=== PATIENT | male | born 1965 | race Caucasian/White ===

== ENCOUNTER 2018-02-23 02:55 | Emergency (ER) | payer MEDICARE ==
[2018-02-23 03:20] VITALS: TEMP 98.9
--- NOTE | 2018-02-23 04:06 | ED ---
General Adult HPI - General Source: patient, RN notes reviewed Mode of arrival: EMS Limitations: no limitations <Louie Pittman - Last Filed: 02/23/18 04:41> <Vivi Crow - Last Filed: 02/23/18 12:47> - General Chief complaint: Psychiatric Symptoms Stated complaint: SUICIDAL Time Seen by Provider: 02/23/18 02:57 - History of Present Illness Initial comments: 52-year-old male presents to the emergency department for a chief complaint of depression. Patient states that 2 weeks ago he had an upsetting event occur that he does not wish to discuss at this time. Patient states he became increasingly depressed after this event. Patient states at that point he had been sober from alcohol for 2.5 years and recently started drinking again in the past 2 weeks. Patient admits to drinking a gallon of wine throughout the day today. Patient states that he was on the phone with his friend when he began to talk about his depression. Patient states his friend became worried and called EMS. Patient denies having stated any suicidal thoughts. He denies any thoughts of self-harm at this time. Patient does have a history of bipolar disorder as well as severe depression. He has medications which he has not been taking consistently. Patient also has a history of suicide attempt in the past with overdose. Patient has no other complaints at this time including shortness of breath, chest pain, abdominal pain, nausea or vomiting, headache, or visual changes. (Louie Pittman) - Related Data Home Medications Medication Instructions Recorded Confirmed Citalopram Hydrobromide [CeleXA] 40 mg PO DAILY 02/25/15 02/23/18 lamoTRIgine [LaMICtal] 200 mg PO BID 02/25/15 02/23/18 Levothyroxine Sodium [Synthroid] 300 mcg PO DAILY 02/26/15 02/23/18 Carvedilol [Coreg] 6.25 mg PO BID 04/24/15 02/23/18 Cyanocobalamin [Vitamin B-12] 500 mg PO DAILY 04/24/15 02/23/18 Furosemide [Lasix] 40 mg PO DAILY 04/24/15 02/23/18 Iron 650 mg PO DAILY 04/24/15 02/23/18 LORazepam [Ativan] 1 mg PO TID PRN 04/24/15 02/23/18 Multivitamins, Thera [Multivitamin 1 tab PO DAILY 09/30/15 02/23/18 (formulary)] Previous Rx's Medication Instructions Recorded Folic Acid 1 mg PO DAILY #30 tablet 02/28/15 Pantoprazole [Protonix] 40 mg PO BID #60 tablet. 10/09/15 Thiamine [Vitamin B-1] 100 mg PO 1200 #30 tablet 10/09/15 Tobramycin 0.3% Ophth Soln [Tobrex 1 drops BOTH EYES BID #1 bottle 10/09/15 0.3% Ophth Soln] Vancomycin Oral Solution 250 mg PO Q6HR #200 ml 10/09/15 Allergies Allergy/AdvReac Type Severity Reaction Status Date / Time latex Allergy Rash/Hives Verified 09/30/15 00:48 Review of Systems ROS Other: All systems not noted in ROS Statement are negative. <Louie Pittman - Last Filed: 02/23/18 04:41> ROS Other: All systems not noted in ROS Statement are negative. <Vivi Crow - Last Filed: 02/23/18 12:47> ROS Statement: Those systems with pertinent positive or pertinent negative responses have been documented in the HPI. Past Medical History Past Medical History: Atrial Fibrillation, Coronary Artery Disease (CAD), Chest Pain / Angina, Heart Failure, CVA/TIA, GERD/Reflux, GI Bleed, Hypertension, Myocardial Infarction ([place]), Seizure Disorder, Sleep Apnea/CPAP/BIPAP, Syncope, Thyroid Disorder, Vascular Disorder Additional Past Medical History / Comment(s): Pt. states he had a CT in 2013 and had a TIA in 1994. Does not currently have seizures. States he has varicose veins and poor venous circulation. Last Myocardial Infarction Date:: 2013 History of Any Multi-Drug Resistant Organisms: None Reported Past Surgical History: Bariatric Surgery, Bowel Resection, Heart Catheterization , Hernia Repair, Tonsillectomy Additional Past Surgical History / Comment(s): varicose vein surgery, Hernia repair as an infant. 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 Past Anesthesia/Blood Transfusion Reactions: No Reported Reaction Past Psychological History: Depression Smoking Status: Former smoker Past Alcohol Use History: Abuse, Daily, Heavy Past Drug Use History: None Reported - Past Family History Father Family Medical History: Cancer Additional Family Medical History / Comment(s): Lymphoma Sister(s) Family Medical History: Cancer Additional Family Medical History / Comment(s): Breast <Louie Pittman - Last Filed: 02/23/18 04:41> General Exam Limitations: no limitations General appearance: alert, in no apparent distress Head exam: Present: atraumatic, normocephalic, normal inspection Eye exam: Present: normal appearance. Absent: scleral icterus, conjunctival injection ENT exam: Present: normal exam, mucous membranes moist Neck exam: Present: normal inspection, full ROM. Absent: tenderness, meningismus, lymphadenopathy Respiratory exam: Present: normal lung sounds bilaterally. Absent: respiratory distress, wheezes, rales, rhonchi, stridor Cardiovascular Exam: Present: regular rate, normal rhythm, normal heart sounds. Absent: systolic murmur, diastolic murmur, rubs, gallop, clicks Neurological exam: Present: alert, oriented X3, CN II-XII intact Psychiatric exam: Present: depressed (Patient does appear intoxicated and is tearful. He is nonaggressive and cooperative.) <Louie Pittman - Last Filed: 02/23/18 04:41> Vital Signs 02/23/18 03:00 Temperature 98.9 F Pulse Rate 83 Respiratory 18 Rate Blood Pressure 155/97 O2 Sat by Pulse 94 L Oximetry Medical Decision Making <Louie Pittman - Last Filed: 02/23/18 04:41> <Vivi Crow - Last Filed: 02/23/18 12:47> - Medical Decision Making 52-year-old male with a history of bipolar disorder as well as depression presents to the emergency department for a chief complaint of depressive thoughts. Patient states he was speaking with a friend earlier today when he started to talk about his depression and she became concerned and called the police. Patient denies any thoughts of suicide or threatening suicide at any time today. Patient denies thoughts of self-harm or harming others. Patient does admit to a past suicide attempt with overdose but denies any thoughts of overdosing now. Patient was sober from alcohol for 2.5 years and recently began drinking about 2 weeks ago. Patient admits to drinking a gallon of wine today. BAT 0.287. (Louie Pittman) Patient was evaluated by EPS, and Patient will be discharged home at this time. Homicidal ideations. Patient at this time will have close follow-up with a psychiatrist outpatient. He'll be going home with a friend. He is sober and discharge. (Vivi Crow) - Lab Data Lab Results 02/23/18 Range/Units 07:25 Urine Opiates Screen Not Detected (NotDetected) Ur Oxycodone Screen Not Detected (NotDetected) Urine Methadone Screen Not Detected (NotDetected) Ur Propoxyphene Screen Not Detected (NotDetected) Ur Barbiturates Screen Not Detected (NotDetected) U Tricyclic Antidepress Not Detected (NotDetected) Ur Phencyclidine Scrn Not Detected (NotDetected) Ur Amphetamines Screen Not Detected (NotDetected) U Methamphetamines Scrn Not Detected (NotDetected) U Benzodiazepines Scrn Not Detected (NotDetected) Urine Cocaine Screen Not Detected (NotDetected) U Marijuana (THC) Screen Not Detected (NotDetected) Disposition <Louie Pittman - Last Filed: 02/23/18 04:41> Is patient prescribed a controlled substance at d/c from ED?: No Time of Disposition: 12:47 <Vivi Crow - Last Filed: 02/23/18 12:47> Clinical Impression: ETOH abuse Disposition: HOME SELF-CARE Condition: Good Instructions: Abuse of Alcohol (ED) Additional Instructions: Patient advised to follow-up with primary care physician. Return to emergency department if any alarming signs or symptoms occur. Referrals: Rikki Mo MD [Primary Care Provider] - 1-2 days
[2018-02-23] MEDS ORDERED: LORazepam 2 MG/ML INJ IV PRN ×3 (04:14)
[2018-02-23 07:59] LABS: Amphetamine Screen,Urine Not Detected (NotDetected); Barbiturate Screen,Urine Not Detected (NotDetected); Benzodiazepines Screen,Urine Not Detected (NotDetected); Cocaine Screen,Urine Not Detected (NotDetected); Methadone Screen, Urine Not Detected (NotDetected); Opiate Screen,Urine Not Detected (NotDetected); Oxycodone Screen, Urine Not Detected (NotDetected); Phencyclidine Screen,Urine Not Detected (NotDetected); Tricyclic Antidepressant,Urine Not Detected (NotDetected); Urn Cannabinoid Scrn Not Detected (NotDetected)
[2018-02-23] MEDS ORDERED: chlordiazePOXIDE 25 MG CAP PO STA (12:49)
[2018-02-23 14:02] VITALS: BP 136/78; PULSE 98; RESP 16
== END 2018-02-23 14:00 | disposition home or self-care (01) ==
LOC: EC 02:55
DX: F10.10 Alcohol abuse, uncomplicated (principal); R45.850 Homicidal ideations; F31.9 Bipolar disorder, unspecified; I48.91 Unspecified atrial fibrillation; I25.119 Atherosclerotic heart disease of native coronary artery with unspecified angina pectoris; I11.0 Hypertensive heart disease with heart failure; I50.9 Heart failure, unspecified; I25.2 Old myocardial infarction; G40.909 Epilepsy, unspecified, not intractable, without status epilepticus; G47.30 Sleep apnea, unspecified; Z99.89 Dependence on other enabling machines and devices; E07.9 Disorder of thyroid, unspecified; Z87.891 Personal history of nicotine dependence; Z86.73 Personal history of transient ischemic attack (TIA), and cerebral infarction without residual deficits; Z79.899 Other long term (current) drug therapy; Z91.040 Latex allergy status; Z95.818 Presence of other cardiac implants and grafts
CPT/HCPCS: 82075; 80306; 99284; 96374; J2060

== ENCOUNTER 2018-03-26 10:12 | Inpatient (IN) | payer MEDICARE ==
[2018-03-26] MEDS ORDERED: SODIUM CHLORIDE 0.9% 1,000 ML IV STA ×2 (10:44→12:12)
--- NOTE | 2018-03-26 10:44 | ED ---
General Adult HPI - General Chief complaint: Psychiatric Symptoms Stated complaint: Alcohol/Mental Health Time Seen by Provider: 03/26/18 10:21 Source: patient, EMS, RN notes reviewed Mode of arrival: EMS Limitations: no limitations - History of Present Illness Initial comments: Patient is a 52-year-old male presenting to the emergency department by EMS. Patient admits to being depressed and having suicidal thoughts. Patient does have thoughts of walking into oncoming traffic. Patient does admit to drinking alcohol. Patient denies any overdose or excessive total taking. No drug use. Patient does have a history of previous suicide attempt in the past. Patient states he did experience a recent loss. EMS states they have concern patient recently lost his dog. Patient denies any physical complaints. - Related Data Home Medications Medication Instructions Recorded Confirmed Citalopram Hydrobromide [CeleXA] 40 mg PO DAILY 02/25/15 03/26/18 lamoTRIgine [LaMICtal] 400 mg PO DAILY 02/25/15 03/26/18 Levothyroxine Sodium [Synthroid] 300 mcg PO DAILY 02/26/15 03/26/18 Disulfiram [Antabuse] 250 mg PO DAILY 03/26/18 03/26/18 Ferrous Sulfate [Feosol] 325 mg PO DAILY 03/26/18 03/26/18 Furosemide [Lasix] 20 mg PO DAILY 03/26/18 03/26/18 Metoprolol Succinate (ER) [Toprol 50 mg PO DAILY 03/26/18 03/26/18 Xl] QUEtiapine [SEROquel] 100 mg PO HS 03/26/18 03/26/18 Ramipril [Altace] 5 mg PO HS 03/26/18 03/26/18 Allergies Allergy/AdvReac Type Severity Reaction Status Date / Time latex Allergy Rash/Hives Verified 03/26/18 10:55 Review of Systems ROS Statement: Those systems with pertinent positive or pertinent negative responses have been documented in the HPI. ROS Other: All systems not noted in ROS Statement are negative. Constitutional: Denies: fever Eyes: Denies: eye pain ENT: Denies: ear pain Respiratory: Denies: cough Cardiovascular: Denies: chest pain Endocrine: Denies: fatigue Gastrointestinal: Denies: abdominal pain Genitourinary: Denies: dysuria Musculoskeletal: Denies: back pain Skin: Denies: rash Neurological: Denies: headache Psychiatric: Reports: depression, suicidal thoughts Past Medical History Past Medical History: Atrial Fibrillation, Coronary Artery Disease (CAD), Chest Pain / Angina, Heart Failure, CVA/TIA, GERD/Reflux, GI Bleed, Hypertension, Myocardial Infarction ([place]), Seizure Disorder, Sleep Apnea/CPAP/BIPAP, Syncope, Thyroid Disorder, Vascular Disorder Additional Past Medical History / Comment(s): Pt. states he had a [place] in 2013 and had a TIA in 1994. Does not currently have seizures. States he has varicose veins and poor venous circulation. Last Myocardial Infarction Date:: 2013 History of Any Multi-Drug Resistant Organisms: None Reported Past Surgical History: Bariatric Surgery, Bowel Resection, Heart Catheterization , Hernia Repair, Tonsillectomy Additional Past Surgical History / Comment(s): varicose vein surgery, Hernia repair as an infant. 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 Past Anesthesia/Blood Transfusion Reactions: No Reported Reaction Past Psychological History: Depression Smoking Status: Former smoker Past Alcohol Use History: Abuse, Daily, Heavy Past Drug Use History: None Reported - Past Family History Father Family Medical History: Cancer Additional Family Medical History / Comment(s): Lymphoma Sister(s) Family Medical History: Cancer Additional Family Medical History / Comment(s): Breast General Exam Limitations: altered mental status General appearance: alert, in no apparent distress Head exam: Present: atraumatic Eye exam: Present: normal appearance, PERRL, EOMI, nystagmus ENT exam: Present: normal oropharynx Neck exam: Present: normal inspection Respiratory exam: Present: normal lung sounds bilaterally Cardiovascular Exam: Present: tachycardia, irregular rhythm GI/Abdominal exam: Present: soft. Absent: tenderness Extremities exam: Present: normal inspection Neurological exam: Present: alert Psychiatric exam: Present: depressed, suicidal ideation Skin exam: Present: normal color Course Vital Signs 03/26/18 03/26/18 03/26/18 10:19 12:07 12:49 Temperature 98.2 F Pulse Rate 124 H 141 H 116 H Respiratory 18 18 18 Rate Blood Pressure 155/85 153/104 148/76 O2 Sat by Pulse 96 95 97 Oximetry 03/26/18 14:08 Temperature Pulse Rate 135 H Respiratory 18 Rate Blood Pressure 135/86 O2 Sat by Pulse Oximetry - Reevaluation(s) Reevaluation #1: 03/26/18 10:54 Patient is being uncooperative and near combative with staff. EKG Findings - EKG Comments: EKG Findings:: Neuro complex irregular rhythm with a rate of 129. QRS 134. QT 32. QTC 413. Left axis. Nonspecific intraventricular block. No acute ST change. Medical Decision Making - Medical Decision Making Patient was reevaluated. Patient has continued A. fib with RVR despite Ativan and IV fluid boluses. Case was discussed with Dr. rasmussen, who will admit for hospital call. - Lab Data Result diagrams: 03/26/18 10:55 03/26/18 10:55 Lab Results 03/26/18 03/26/18 Range/Units 10:55 10:55 WBC 4.5 (3.8-10.6) k/uL RBC 4.94 (4.30-5.90) m/uL Hgb 12.5 L (13.0-17.5) gm/dL Hct 41.5 (39.0-53.0) % MCV 84.0 (80.0-100.0) fL MCH 25.4 (25.0-35.0) pg MCHC 30.2 L (31.0-37.0) g/dL RDW 19.9 H (11.5-15.5) % Plt Count 196 (150-450) k/uL Neutrophils % 45 % Lymphocytes % 37 % Monocytes % 12 % Eosinophils % 2 % Basophils % 1 % Neutrophils # 2.0 (1.3-7.7) k/uL Lymphocytes # 1.7 (1.0-4.8) k/uL Monocytes # 0.5 (0-1.0) k/uL Eosinophils # 0.1 (0-0.7) k/uL Basophils # 0.0 (0-0.2) k/uL Hypochromasia Moderate Anisocytosis Slight Sodium 147 H (137-145) mmol/L Potassium 4.7 (3.5-5.1) mmol/L Chloride 113 H (98-107) mmol/L Carbon Dioxide 21 L (22-30) mmol/L Anion Gap 13 mmol/L BUN 17 (9-20) mg/dL Creatinine 0.94 (0.66-1.25) mg/dL Est GFR (CKD-EPI)AfAm >90 (>60 ml/min/1.73 sqM) Est GFR (CKD-EPI)NonAf >90 (>60 ml/min/1.73 sqM) Glucose 101 H (74-99) mg/dL Calcium 8.7 (8.4-10.2) mg/dL Total Bilirubin 0.2 (0.2-1.3) mg/dL AST 48 (17-59) U/L ALT 47 (21-72) U/L Alkaline Phosphatase 84 (38-126) U/L Total Protein 6.3 (6.3-8.2) g/dL Albumin 3.8 (3.5-5.0) g/dL Salicylates <1.0 mg/dL Acetaminophen <10.0 ug/mL Serum Alcohol 293 H* mg/dL Critical Care Time Critical Care Time: Yes Total Critical Care Time: 32 Disposition Clinical Impression: Acute alcohol intoxication, Atrial fibrillation with RVR, Depression, Suicidal ideation Disposition: ADMITTED IP TO THIS HOSP Is patient prescribed a controlled substance at d/c from ED?: No Referrals: Rikki Mo MD [Primary Care Provider] - 1-2 days Decision Time: 14:16
[2018-03-26] MEDS ORDERED: SODIUM CHLORIDE 0.9% 1,000 ML with MVI, ADULT NO.4 WITH VIT K 10 ML, THIAMINE 100 MG, F... IV ONE ×4 (10:45)
[2018-03-26] MEDS: HALOPERIDOL LACTATE 5 MG/ML 1 ML VIAL IVP PRN ×2 (11:02→11:14)
[2018-03-26 11:10] LABS: Anisocytosis Slight; Basophils % (A) 1 %; Eosinophils # (A) 0.1 k/uL (0-0.7); Eosinophils % (A) 2 %; HCT 41.5 % (39.0-53.0); HGB 12.5 gm/dL (13.0-17.5); Hypochromasia Moderate; Lymphocytes # (A) 1.7 k/uL (1.0-4.8); Lymphocytes % (A) 37 %; MCH 25.4 pg (25.0-35.0); MCHC 30.2 g/dL (31.0-37.0); Mean Platelet Volume 6.7; Monocytes # (A) 0.5 k/uL (0-1.0); Monocytes % (A) 12 %; Neutrophils % (A) 45 %; Platelet Count 196 k/uL (150-450); RBC 4.94 m/uL (4.30-5.90); RDW 19.9 % (11.5-15.5); WBC 4.5 k/uL (3.8-10.6)
[2018-03-26 11:21] LABS: ALT 47 U/L (21-72); AST 48 U/L (17-59); Acetaminophen <10.0 ug/mL; Albumin 3.8 g/dL (3.5-5.0); Alkaline Phosphatase 84 U/L (38-126); Anion Gap 13 mmol/L; Blood Urea Nitrogen 17 mg/dL (9-20); Calcium 8.7 mg/dL (8.4-10.2); Carbon Dioxide 21 mmol/L (22-30); Chloride 113 mmol/L (98-107); Glucose 101 mg/dL (74-99); Potassium 4.7 mmol/L (3.5-5.1); Salicylate <1.0 mg/dL; Sodium 147 mmol/L (137-145); Total Bilirubin 0.2 mg/dL (0.2-1.3); Total Protein 6.3 g/dL (6.3-8.2)
[2018-03-26 11:25] LABS: Alcohol 293 mg/dL
[2018-03-26] MEDS ORDERED: LORazepam 2 MG/ML INJ IV STA (12:35)
[2018-03-26] MEDS ORDERED: NITROGLYCERIN SL TABS 0.4 MG TAB SUBLINGUAL PRN (14:17)
[2018-03-26] MEDS ORDERED: ASPIRIN 81 MG PO STA (14:17)
[2018-03-26 14:48] LABS: Creatine Kinase MB 1.9 ng/mL (0.0-2.4); Troponin I 0.024 ng/mL (0.000-0.034)
--- NOTE | 2018-03-26 15:04 | XR ---
EXAMINATION TYPE: XR chest 2V DATE OF EXAM: 03/26/2018 COMPARISON: 09/30/2015 HISTORY: Chest pain TECHNIQUE: Frontal and lateral views of the chest are obtained. FINDINGS: Heart and mediastinum are normal. Lungs are clear. Diaphragm is normal. Bony thorax is int act. There are chest leads. IMPRESSION: Normal chest. No change.
[2018-03-26] MEDS: DILTIAZEM 50 MG in SODIUM CHLORIDE 0.9% 40 ML IV SCH ×3 (15:06→21:18)
[2018-03-26] MEDS: SODIUM CHLORIDE 0.9% 1,000 ML IV SCH ×2 (15:10→17:27)
[2018-03-26 15:38] LABS: Amphetamine Screen,Urine Not Detected (NotDetected); Barbiturate Screen,Urine Not Detected (NotDetected); Benzodiazepines Screen,Urine Detected (NotDetected); Cocaine Screen,Urine Not Detected (NotDetected); Methadone Screen, Urine Not Detected (NotDetected); Opiate Screen,Urine Not Detected (NotDetected); Oxycodone Screen, Urine Not Detected (NotDetected); Phencyclidine Screen,Urine Not Detected (NotDetected); Tricyclic Antidepressant,Urine Not Detected (NotDetected); Urn Cannabinoid Scrn Not Detected (NotDetected)
[2018-03-26] MEDS ORDERED: DILTIAZEM DRIP BOLUS FROM BAG 1 MG SOLN IV ONE ×3 (15:51→17:02)
[2018-03-26] MEDS ORDERED: SODIUM CHLORIDE 0.9% 500 ML IV ONE (16:38)
[2018-03-26] MEDS ORDERED: traMADol 50 MG TAB PO PRN (16:50)
[2018-03-26] MEDS ORDERED: ACETAMINOPHEN TAB 325 MG TAB PO PRN (16:50)
--- NOTE | 2018-03-26 16:51 | P.HPIM ---
History of Present Illness This is a pleasant 50 years old male with past medical history of coronary artery disease, atrial fibrillation, heart failure, GI bleed, hypertension, seizure disorder, sleep apnea, syncope, hypothyroidism. Patient was brought by EMS, however patient does not know why he states that his neighbor called police for him and he hasn't been told why. However patient states he has been drinking every day about a gallon of wine. And he confirms to me that he has history of suicidal ideation and has the hospital for that reason about 10 years ago. And that he has a psychiatrist appointment to follow up with on May [address] Winston Holguin He earlier he told the emergency room attending that he has suicidal ideation and plans, however when I walked into the room he denies to me suicidal ideation. Patient was on 07-11 and told the sitter at bedside that he wanted to kill himself, although at times he would not admit that. Psychiatric consultation. Continue with IV fluids. On admission also patient was noticed to have a high heart rates about 130-140, and it was irregular. However patient denies any chest pain or dyspnea or dizziness. Systolic blood pressure in the 120s. Patient states he has history of seizure related to alcohol withdrawal. Patient was started on Cardizem drip in the emergency room and his heart rates are coming down to 120, follow-up as per protocol Review of Systems CONSTITUTIONAL: No fever, no malaise, no fatigue. HEENT: No recent visual problems or hearing problems. Denied any sore throat. CARDIOVASCULAR: No orthopnea, PND, no palpitations, no syncope. PULMONARY: No shortness of breath, no cough, no hemoptysis. GASTROINTESTINAL: No diarrhea, no nausea, no vomiting, no abdominal pain. Normoactive bowel sounds. NEUROLOGICAL: No headaches, no weakness, no numbness. HEMATOLOGICAL: Denies any bleeding or petechiae. GENITOURINARY: Denies any burning micturition, frequency, or urgency. MUSCULOSKELETAL/RHEUMATOLOGICAL: Denies any joint pain, swelling, or any muscle pain. ENDOCRINE: Denies any polyuria or polydipsia. Past Medical History Past Medical History: Atrial Fibrillation, Coronary Artery Disease (CAD), Chest Pain / Angina, Heart Failure, CVA/TIA, GERD/Reflux, GI Bleed, Hypertension, Myocardial Infarction ([place]), Seizure Disorder, Sleep Apnea/CPAP/BIPAP, Syncope, Thyroid Disorder, Vascular Disorder Additional Past Medical History / Comment(s): Pt. states he had a [place] in 2013 and had a TIA in 1994. Does not currently have seizures. States he has varicose veins and poor venous circulation. Last Myocardial Infarction Date:: 2013 History of Any Multi-Drug Resistant Organisms: None Reported Past Surgical History: Bariatric Surgery, Bowel Resection, Heart Catheterization , Hernia Repair, Tonsillectomy Additional Past Surgical History / Comment(s): varicose vein surgery, Hernia repair as an . 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 Past Anesthesia/Blood Transfusion Reactions: No Reported Reaction Past Psychological History: Depression Smoking Status: Former smoker Past Alcohol Use History: Abuse, Daily, Heavy Past Drug Use History: None Reported - Past Family History Father Family Medical History: Cancer Additional Family Medical History / Comment(s): Lymphoma Sister(s) Family Medical History: Cancer Additional Family Medical History / Comment(s): Breast Medications and Allergies Home Medications Medication Instructions Recorded Confirmed Type Citalopram Hydrobromide [CeleXA] 40 mg PO DAILY 02/25/15 03/26/18 History lamoTRIgine [LaMICtal] 400 mg PO DAILY 02/25/15 03/26/18 History Levothyroxine Sodium [Synthroid] 300 mcg PO DAILY 02/26/15 03/26/18 History Disulfiram [Antabuse] 250 mg PO DAILY 03/26/18 03/26/18 History Ferrous Sulfate [Feosol] 325 mg PO DAILY 03/26/18 03/26/18 History Furosemide [Lasix] 20 mg PO DAILY 03/26/18 03/26/18 History Metoprolol Succinate (ER) [Toprol 50 mg PO DAILY 03/26/18 03/26/18 History Xl] QUEtiapine [SEROquel] 100 mg PO HS 03/26/18 03/26/18 History Ramipril [Altace] 5 mg PO HS 03/26/18 03/26/18 History Allergies Allergy/AdvReac Type Severity Reaction Status Date / Time latex Allergy Rash/Hives Verified 03/26/18 10:55 Physical Exam Vitals: Vital Signs Temp Pulse Pulse Resp BP Pulse Ox 03/26/18 15:54 138 H 16 144/88 98 03/26/18 15:32 134 H 18 131/97 98 03/26/18 15:10 149 H 18 140/102 97 03/26/18 14:08 135 H 18 135/86 03/26/18 12:49 116 H 18 148/76 97 03/26/18 12:07 141 H 18 153/104 95 03/26/18 10:55 135 H 03/26/18 10:19 98.2 F 124 H 18 155/85 96 Intake and Output 03/26/18 03/26/18 03/26/18 06:59 14:59 22:59 Other: Weight 122.47 kg -GENERAL: The patient is alert and oriented x3, slightly drowsy not in any acute distress. Well developed, well nourished. Obese HEENT: Pupils are round and equally reacting to light. EOMI. No scleral icterus. No conjunctival pallor. Normocephalic, atraumatic. No pharyngeal erythema. No thyromegaly. -CARDIOVASCULAR: S1 and S2 present. No murmurs, rubs, or gallops. fast heart rate PULMONARY: Chest is clear to auscultation, no wheezing or crackles. ABDOMEN: Soft, nontender, nondistended, normoactive bowel sounds. No palpable organomegaly. MUSCULOSKELETAL: No joint swelling or deformity. EXTREMITIES: No cyanosis, clubbing, or pedal edema. NEUROLOGICAL: Gross neurological examination did not reveal any focal deficits. SKIN: No rashes. Results CBC & Chem 7: 03/26/18 10:55 03/26/18 10:55 Labs: Abnormal Lab Results - Last 24 Hours (Table) 03/26/18 03/26/18 03/26/18 Range/Units 10:55 10:55 15:10 Hgb 12.5 L (13.0-17.5) gm/dL MCHC 30.2 L (31.0-37.0) g/dL RDW 19.9 H (11.5-15.5) % Sodium 147 H (137-145) mmol/L Chloride 113 H (98-107) mmol/L Carbon Dioxide 21 L (22-30) mmol/L Glucose 101 H (74-99) mg/dL U Benzodiazepines Scrn Detected H (NotDetected) Serum Alcohol 293 H* mg/dL Assessment and Plan Assessment: Atrial fibrillation with RVR Suicidal ideation and plan Alcohol abuse History of alcohol withdrawal seizure Plan: This is a pleasant 52 years old male from [place] who presents because of A. fib and RVR with suicidal ideation related to alcoholism. Admit to the general medical floor with continuing the same treatment. Continue symptomatic treatment. Resume home medication. Continue with seizure precaution, suicidal precautions. Sitter at bedside with one-to-one. nurse communication is placed for patient cannot sign leaving AMA. Continue with negative inotropic medication. Patient was started on Cardizem drip on admission. s..Cardiology consultation. Continue with CIWA protocol. Banana bag with thiamine, multivitamin and folic acid. GI and DVT prophylaxis. Telemetry. Further recommendation is based on the clinical course the patient DVT prophylaxis on subcutaneous heparin GI prophylaxis Pepcid Prognosis is guarded Discussed with bed side nurse
[2018-03-26] MEDS: THIAMINE 100 MG TAB PO SCH (17:33)
[2018-03-26] MEDS: LORazepam 2 MG/ML INJ IV PRN ×3 (17:48→22:48)
[2018-03-26 17:51] LABS: Creatine Kinase MB 1.8 ng/mL (0.0-2.4); Troponin I 0.028 ng/mL (0.000-0.034)
[2018-03-26] MEDS: QUEtiapine 100 MG TAB PO SCH (20:04)
[2018-03-26] MEDS: FAMOTIDINE 20 MG/2 ML VIAL IV SCH (20:05)
[2018-03-26] MEDS: HEPARIN SODIUM,PORCINE 5,000 UNIT/ML 1 ML VIAL SQ SCH (20:05)
[2018-03-26] MEDS ORDERED: LISINOPRIL 20 MG TAB PO SCH (21:00)
[2018-03-26 23:23] LABS: Creatine Kinase MB 1.4 ng/mL (0.0-2.4); Troponin I 0.022 ng/mL (0.000-0.034)
[2018-03-27] MEDS: LORazepam 2 MG/ML INJ IV PRN ×3 (00:48→02:29)
[2018-03-27] MEDS: SODIUM CHLORIDE 0.9% 1,000 ML IV SCH ×5 (00:48→16:06)
[2018-03-27] MEDS: HALOPERIDOL LACTATE 5 MG/ML 1 ML VIAL IVP PRN (01:28)
[2018-03-27] MEDS: GABAPENTIN 100 MG CAP PO SCH ×4 (03:29→21:05)
[2018-03-27 04:09] LABS: Glucose,Whole Blood 132 mg/dL (75-99)
[2018-03-27] MEDS ORDERED: LORazepam Vial 40 MG in DEXTROSE 5% IN WATER 80 ML IV SCH ×2 (04:30)
[2018-03-27] MEDS ORDERED: NALOXONE 0.4 MG/ML 1 ML VIAL IV PRN (04:37)
[2018-03-27 04:57] LABS: Appearance,Urine Clear (Clear); Bilirubin,Urine Negative (Negative); Blood,Urine Negative (Negative); Color,Urine Light Yellow; Glucose,Urine (UA) Negative (Negative); Ketones,Urine Negative (Negative); Leukocyte Esterase,Urine Negative (Negative); Nitrite,Urine Negative (Negative); PH, Urine 6.5 (5.0-8.0); Protein,Urine Negative (Negative); Specific Gravity,Urine 1.011 (1.001-1.035); Urobilinogen,Urine <2.0 mg/dL (<2.0)
[2018-03-27] MEDS: ACETAMINOPHEN TAB 325 MG TAB PO PRN (05:02)
[2018-03-27] MEDS: DILTIAZEM 50 MG in SODIUM CHLORIDE 0.9% 40 ML IV SCH ×4 (05:06→16:03)
[2018-03-27 05:30] LABS: Anisocytosis Slight; Basophils % (A) 1 %; Eosinophils % (A) 1 %; HCT 38.6 % (39.0-53.0); HGB 11.8 gm/dL (13.0-17.5); Hypochromasia Slight; Lymphocytes # (A) 0.4 k/uL (1.0-4.8); Lymphocytes % (A) 14 %; MCHC 30.5 g/dL (31.0-37.0); Mean Platelet Volume 6.7; Microcytosis Slight; Monocytes # (A) 0.3 k/uL (0-1.0); Monocytes % (A) 10 %; Neutrophils # (A) 2.3 k/uL (1.3-7.7); Neutrophils % (A) 73 %; Platelet Count 134 k/uL (150-450); RDW 19.7 % (11.5-15.5); WBC 3.2 k/uL (3.8-10.6)
[2018-03-27 05:44] LABS: ALT 37 U/L (21-72); AST 37 U/L (17-59); Albumin 3.4 g/dL (3.5-5.0); Alkaline Phosphatase 91 U/L (38-126); Anion Gap 8 mmol/L; Blood Urea Nitrogen 12 mg/dL (9-20); Calcium 8.4 mg/dL (8.4-10.2); Carbon Dioxide 23 mmol/L (22-30); Chloride 106 mmol/L (98-107); Cholesterol 166 mg/dL (<200); Glucose 106 mg/dL (74-99); HDL Cholesterol 54 mg/dL (40-60); LDL Cholesterol,Calculated 86 mg/dL (0-99); Magnesium 1.4 mg/dL (1.6-2.3); Phosphorus 2.2 mg/dL (2.5-4.5); Potassium 3.8 mmol/L (3.5-5.1); Sodium 137 mmol/L (137-145); Total Bilirubin 1.1 mg/dL (0.2-1.3); Total Protein 5.8 g/dL (6.3-8.2); Triglycerides 128 mg/dL (<150)
[2018-03-27] MEDS ORDERED: SODIUM PHOSPHATE 10 MMOL in SODIUM CHLORIDE 0.9% 250 ML IVPB ONE (07:30)
[2018-03-27] MEDS ORDERED: POTASSIUM CHLORIDE ER 20 MEQ TAB.ER PO SCH (08:00)
[2018-03-27] MEDS: HEPARIN SODIUM,PORCINE 5,000 UNIT/ML 1 ML VIAL SQ SCH ×2 (08:49→21:04)
[2018-03-27] MEDS: FAMOTIDINE 20 MG/2 ML VIAL IV SCH ×2 (08:50→21:04)
[2018-03-27] MEDS: MAGNESIUM SULFATE-D5W PMX 1 GM in DEXTROSE/WATER 1 100ML.BAG IVPB SCH ×3 (08:51→11:30)
--- NOTE | 2018-03-27 08:52 | XR ---
EXAMINATION TYPE: XR chest 1V DATE OF EXAM: 03/27/2018 COMPARISON: 03/26/2018 HISTORY: Chest pain TECHNIQUE: Single frontal view of the chest is obtained. FINDINGS: There is limited inspiration. There is right upper lobe and lower lobe and left lower lobe subsegmental consolidation. The heart is enlarged. No obvious pneumothorax or pleural effusion. Hype rtrophic change of the spine noted. IMPRESSION: 1. There is bilateral areas of infiltrate. Differential includes pneumonia versus pulmonary edema.
[2018-03-27] MEDS ORDERED: ASPIRIN 325 MG TAB PO SCH (09:00)
[2018-03-27] MEDS ORDERED: METOPROLOL SUCCINATE (ER) 50 MG TAB.ER.24H PO SCH (09:00)
[2018-03-27] MEDS: POTASSIUM CHLORIDE 10 MEQ in WATER FOR INJECTION 1 100ML.BAG IVPB SCH ×5 (09:46→18:33)
--- NOTE | 2018-03-27 13:16 | P.PN ---
Subjective This is a pleasant 50 years old male with past medical history of coronary artery disease, atrial fibrillation, heart failure, GI bleed, hypertension, seizure disorder, sleep apnea, syncope, hypothyroidism. Patient was brought by EMS, however patient does not know why he states that his neighbor called police for him and he hasn't been told why. However patient states he has been drinking every day about a gallon of wine. And he confirms to me that he has history of suicidal ideation and has the hospital for that reason about 10 years ago. And that he has a psychiatrist appointment to follow up with on May [address] Winston Holguin He earlier he told the emergency room attending that he has suicidal ideation and plans, however when I walked into the room he denies to me suicidal ideation. Patient was on 07-11 and told the sitter at bedside that he wanted to kill himself, although at times he would not admit that. Psychiatric consultation. Continue with IV fluids. On admission also patient was noticed to have a high heart rates about 130-140, and it was irregular. However patient denies any chest pain or dyspnea or dizziness. Systolic blood pressure in the 120s. Patient states he has history of seizure related to alcohol withdrawal. Patient was started on Cardizem drip in the emergency room and his heart rates are coming down to 120, follow-up as per protocol 03/27/2018 Patient was transferred overnight to the ICU because of agitation which could be related to his delirium tremens that he needed Ativan drip. The patient is more sleepy this morning but it can be awakened easily before he goes back to sleep. Patient remains oriented to time person and place. Patient denies chest pain or dyspnea. Because patient is sleepy we cannot assess his suicidal ideation today. However yesterday when I talked to the patient he agrees to stay in the hospital for his heart problems and other issues. Psychiatrist consult is called and is pending. Patient continue on see what protocol however his drowsy now no more benzodiazepine currently. Continue with multivitamins and other medication. Heart rate is better controlled Review of Systems N/A as pt is sleepy Objective - Vital Signs Vital signs: Vital Signs Temp 98.4 F 03/27/18 12:00 Pulse 89 03/27/18 12:00 Resp 19 03/27/18 12:00 BP 129/67 09/17/18 12:00 Pulse Ox 95 03/27/18 12:00 Intake & Output 03/26/18 03/27/18 03/27/18 18:59 06:59 18:59 Intake Total 277.417 420 710 Output Total 1475 885 Balance 277.417 -1055 -175 Weight 122.47 kg 134.3 kg Intake: IV 320 610 LORazepam Vial 40 mg In 20 10 Dextrose 5% in Water 80 ml @ 4 MG/HR 10 mls/hr IV .Q10H [facility]PRE[facility] Rx#:[id number] Sodium Chloride 0.9% 1, 300 600 000 ml @ 100 mls/hr IV . Q10H [facility] Rx#:[id number] Intake, IV Titration 27.417 100 100 Amount Diltiazem 50 mg In Sodium 27.417 100 100 Chloride 0.9% 40 ml @ 10 MG/HR 10 mls/hr IV .Q5H [facility] Rx#:[id number] Oral 250 Output: Urine 1475 885 Other: Voiding Method Indwelling Catheter Indwelling Catheter # Voids 1 # Bowel Movements 1 - Exam -GENERAL: The patient is drowsy, he opens I to tactile and verbal stimuli, he knows where he is. But he goes back to sleep easily. not in any acute distress. Well developed, well nourished. Obese HEENT: Pupils are round and equally reacting to light. EOMI. No scleral icterus. No conjunctival pallor. Normocephalic, atraumatic. No pharyngeal erythema. No thyromegaly. CARDIOVASCULAR: S1 and S2 present. No murmurs, rubs, or gallops. Artery was controlled PULMONARY: Chest is clear to auscultation, no wheezing or crackles. ABDOMEN: Soft, nontender, nondistended, normoactive bowel sounds. No palpable organomegaly. MUSCULOSKELETAL: No joint swelling or deformity. EXTREMITIES: No cyanosis, clubbing, or pedal edema. NEUROLOGICAL: Gross neurological examination did not reveal any focal deficits. SKIN: No rashes. - Labs CBC & Chem 7: 03/27/18 04:56 03/27/18 04:56 Labs: Abnormal Lab Results - Last 24 Hours (Table) 03/26/18 03/27/18 03/27/18 Range/Units 15:10 04:06 04:56 WBC (3.8-10.6) k/uL Hgb (13.0-17.5) gm/dL Hct (39.0-53.0) % MCHC (31.0-37.0) g/dL RDW (11.5-15.5) % Plt Count (150-450) k/uL Lymphocytes # (1.0-4.8) k/uL Creatinine 0.64 L (0.66-1.25) mg/dL Glucose 106 H (74-99) mg/dL POC Glucose (mg/dL) 132 H (75-99) mg/dL Phosphorus 2.2 L (2.5-4.5) mg/dL Magnesium 1.4 L (1.6-2.3) mg/dL Total Protein 5.8 L (6.3-8.2) g/dL Albumin 3.4 L (3.5-5.0) g/dL U Benzodiazepines Scrn Detected H (NotDetected) 03/27/18 Range/Units 04:56 WBC 3.2 L (3.8-10.6) k/uL Hgb 11.8 L (13.0-17.5) gm/dL Hct 38.6 L (39.0-53.0) % MCHC 30.5 L (31.0-37.0) g/dL RDW 19.7 H (11.5-15.5) % Plt Count 134 L (150-450) k/uL Lymphocytes # 0.4 L (1.0-4.8) k/uL Creatinine (0.66-1.25) mg/dL Glucose (74-99) mg/dL POC Glucose (mg/dL) (75-99) mg/dL Phosphorus (2.5-4.5) mg/dL Magnesium (1.6-2.3) mg/dL Total Protein (6.3-8.2) g/dL Albumin (3.5-5.0) g/dL U Benzodiazepines Scrn (NotDetected) Microbiology - Last 24 Hours (Table) 03/27/18 04:10 Urine Culture - Preliminary Urine,Catheterized Assessment and Plan Assessment: Possible Delirium tremens Possible Atrial fibrillation with RVR Suicidal ideation and plan Alcohol abuse History of alcohol withdrawal seizure Plan: This is a pleasant 52 years old male from [place] who presents because of A. fib and RVR with suicidal ideation related to alcoholism. Admit to the general medical floor with continuing the same treatment. Continue symptomatic treatment. Resume home medication. Continue with seizure precaution, suicidal precautions. Sitter at bedside with one-to-one. nurse communication is placed for patient cannot sign leaving AMA. Continue with negative inotropic medication. Patient was started on Cardizem drip on admission. s..Cardiology consultation. Continue with CIWA protocol. Banana bag with thiamine, multivitamin and folic acid. GI and DVT prophylaxis. Telemetry. Further recommendation is based on the clinical course the patient DVT prophylaxis on subcutaneous heparin GI prophylaxis Pepcid Prognosis is guarded Discussed with bed side nurse
--- NOTE | 2018-03-27 13:34 | P.CNPUL ---
History of Present Illness Consult date: 03/27/18 Requesting physician: Yash Huggins Reason for consult: other Chief complaint: Alcohol intoxication, suicidal ideation, major depressive disorder History of present illness: This is a 52-year-old white male patient of Dr. Mo, who to the emergency department on 03/26/2018 by the police a phone call was placed by the patient's neighbor who was concerned about patient's suicidal ideation, and alcohol intoxication. Patient has a history of depression, he is on Seroquel on an outpatient basis. Past history of EtOH abuse, the patient had been sober for 2- 1/2 years prior to this episode. Recently patient had to put his dog down, and he was depressed, and started drinking again. In the emergency department patient admitted to suicidal thoughts, and thoughts of walking into oncoming traffic. He does have a history of previous suicide attempt in the past. Urine drug screen showed benzodiazepines, serum alcohol level of 293, salicylates were less than 1, acetaminophen was less than 10, no other drugs were detected. Other labs showed the WBC 4.5, hemoglobin of 12.5, sodium of 147 , potassium is 4.7, chloride was 113, CO2 was 21, BUN was 17, creatinine was 0.94, troponins were negative 3, LFTs were negative. Patient was found to be quite tachycardic, EKG showed Afib/atrial flutter with a rate of 129 BPM. Initial chest x-ray showed normal chest. Patient was started on IV Cardizem for rate control, he was given a total of 3 L IV fluid boluses in the emergency department, he was started on CIWA protocol, and admitted to selective care unit. In the evening patient was noted to have us see was scale of 22, patient was severely restless, agitated and thrashing around, he was hallucinating, and profusely diaphoretic. Patient was given multiple doses of IV Ativan along with a dose of IV Haldol with no improvement in his agitation. Patient was then placed on Ativan drip at 4 mg per hour, and transferred to the intensive care for further monitoring. In the ICU patient became recently lethargic, and the Ativan drip has been discontinued. This morning he seen in consultation in the intensive care unit. He is obtunded, he opens his eyes and answers questions with repeated verbal stimulation. He knew he was in the hospital, he knew the president, and the correct year. He was able to say he had a tragedy, and he was able to convey that his neighbor was concerned about his well-being and placed a phone call to the police. No seizures. No agitation. No diaphoresis. Patient denies any chest pain or dyspnea. He remains in atrial flutter, and currently the rate is 126 BPM, patient continues on Cardizem drip for rate control at 10 mg per hour. Today's labs have been reviewed. WBC is 3.2, hemoglobin is 11.8, electrolytes and renal profile are unremarkable. Serum magnesium is 1.4, and phosphorus is 2.2 and this has been replaced per protocol. Today's chest x-ray has been reviewed, showed bilateral areas of infiltrate, likely related to atelectasis. Room air pulse ox is 95%, patient remains afebrile, hemodynamically stable. The catheter is in, and patient is producing 50-200 mL per hour. Review of Systems All systems: negative Constitutional: Denies chills, Denies fever Eyes: denies blurred vision, denies pain Ears, nose, mouth and throat: Denies headache, Denies sore throat Cardiovascular: Denies chest pain, Denies shortness of breath Respiratory: Denies cough Gastrointestinal: Denies abdominal pain, Denies diarrhea, Denies nausea, Denies vomiting Musculoskeletal: Denies myalgias Integumentary: Denies pruritus, Denies rash Neurological: Denies numbness, Denies weakness Psychiatric: Denies anxiety, Denies depression Endocrine: Denies fatigue, Denies weight change Past Medical History Past Medical History: Atrial Fibrillation, Coronary Artery Disease (CAD), Chest Pain / Angina, Heart Failure, CVA/TIA, GERD/Reflux, GI Bleed, Hypertension, Myocardial Infarction (NC), Seizure Disorder, Sleep Apnea/CPAP/BIPAP, Syncope, Thyroid Disorder, Vascular Disorder Additional Past Medical History / Comment(s): Pt. states he had a NC in 2013 and had a TIA in 1994. Does not currently have seizures. States he has varicose veins and poor venous circulation. Last Myocardial Infarction Date:: 2013 History of Any Multi-Drug Resistant Organisms: None Reported Past Surgical History: Bariatric Surgery, Bowel Resection, Heart Catheterization , Hernia Repair, Joint Replacement, Tonsillectomy Additional Past Surgical History / Comment(s): varicose vein surgery, Hernia repair as an . 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 Right total hip Past Anesthesia/Blood Transfusion Reactions: No Reported Reaction Past Psychological History: Depression Smoking Status: Former smoker Past Alcohol Use History: Abuse, Daily, Heavy Additional Past Alcohol Use History / Comment(s): . Past Drug Use History: None Reported - Past Family History Father Family Medical History: Cancer Additional Family Medical History / Comment(s): Lymphoma Sister(s) Family Medical History: Cancer Additional Family Medical History / Comment(s): Breast Medications and Allergies Home Medications Medication Instructions Recorded Confirmed Type Citalopram Hydrobromide [CeleXA] 40 mg PO DAILY 02/25/15 03/26/18 History lamoTRIgine [LaMICtal] 400 mg PO DAILY 02/25/15 03/26/18 History Levothyroxine Sodium [Synthroid] 300 mcg PO DAILY 02/26/15 03/26/18 History Disulfiram [Antabuse] 250 mg PO DAILY 03/26/18 03/26/18 History Ferrous Sulfate [Feosol] 325 mg PO DAILY 03/26/18 03/26/18 History Furosemide [Lasix] 20 mg PO DAILY 03/26/18 03/26/18 History Metoprolol Succinate (ER) [Toprol 50 mg PO DAILY 03/26/18 03/26/18 History Xl] QUEtiapine [SEROquel] 100 mg PO HS 03/26/18 03/26/18 History Ramipril [Altace] 5 mg PO HS 03/26/18 03/26/18 History Allergies Allergy/AdvReac Type Severity Reaction Status Date / Time latex Allergy Rash/Hives Verified 03/26/18 10:55 Physical Exam Vitals: Vital Signs Temp Pulse Pulse Resp BP BP Pulse Ox 03/27/18 12:00 98.4 F 89 19 129/67 95 03/27/18 11:30 92 18 108/91 95 03/27/18 11:00 114 H 20 98/77 98 03/27/18 10:30 119 H 19 119/70 97 03/27/18 10:00 105 H 19 137/63 95 03/27/18 09:30 123 H 19 128/71 97 03/27/18 09:00 124 H 21 119/72 97 03/27/18 08:30 121 H 22 126/72 96 03/27/18 08:00 98.2 F 131 H 61 H 126/81 88 L 03/27/18 07:30 98.2 F 128 H 21 126/81 92 L 03/27/18 07:00 98.6 F 133 H 21 137/90 97 03/27/18 06:30 134 H 22 96 03/27/18 06:00 100.4 F H 122 H 22 154/77 94 L 03/27/18 05:30 129 H 22 147/79 95 03/27/18 05:10 103 F H 123 H 16 156/92 94 L 03/27/18 05:00 118 H 14 95 03/27/18 04:50 130 H 11 L 97 03/27/18 04:40 122 H 12 95 03/27/18 04:30 133 H 14 93 L 03/27/18 04:20 124 H 15 179/123 96 03/27/18 04:10 121 H 16 207/93 95 03/27/18 04:00 103.2 F H 116 H 16 95 03/26/18 23:53 97.0 F L 144 H 17 139/89 94 L 03/26/18 20:00 98.9 F 120 H 16 168/96 96 03/26/18 17:34 97.8 F 67 18 186/96 94 L 03/26/18 17:26 108 H 18 180/89 98 03/26/18 16:30 139 H 16 121/77 100 03/26/18 15:54 138 H 16 144/88 98 03/26/18 15:32 134 H 18 131/97 98 03/26/18 15:10 149 H 18 140/102 97 03/26/18 14:08 135 H 18 135/86 Intake and Output 03/26/18 03/27/18 03/27/18 22:59 06:59 14:59 Intake Total 327.417 370 710 Output Total 2970 885 Balance 327.401 -7145 -925 Intake: IV 320 610 LORazepam Vial 40 mg In 20 10 Dextrose 5% in Water 80 ml @ 4 MG/HR 10 mls/hr IV .Q10H [facility] Rx#:[id number] Sodium Chloride 0.9% 1, 300 600 000 ml @ 100 mls/hr IV . Q10H [facility] Rx#:[id number] Intake, IV Titration 77.417 50 100 Amount Diltiazem 50 mg In Sodium 77.417 50 100 Chloride 0.9% 40 ml @ 10 MG/HR 10 mls/hr IV .Q5H [facility] Rx#:[id number] Oral 250 Output: Urine 1475 885 Other: Voiding Method Urinal Indwelling Catheter Indwelling Catheter # Voids 1 # Bowel Movements 1 Weight 122.47 kg 134.3 kg GENERAL EXAM: Obtunded, but arousable 52-year-old white male comfortable in no apparent distress. HEAD: Normocephalic/atraumatic. EYES: Normal reaction of pupils, equal size. Conjunctiva pink, sclera white. NOSE: Clear with pink turbinates. THROAT: No erythema or exudates. NECK: No masses, no JVD, no thyroid enlargement, no adenopathy. CHEST: No chest wall deformity. Symmetrical expansion. LUNGS: Equal air entry with no crackles, wheeze, rhonchi or dullness. CVS: irregular rate and rhythm, normal S1 and S2, no gallops, no murmurs, no rubs ABDOMEN: Soft, nontender. No hepatosplenomegaly, normal bowel sounds, no guarding or rigidity. EXTREMITIES: No clubbing, no edema, no cyanosis, 2+ pulses and upper and lower extremities. MUSCULOSKELETAL: Muscle strength and tone normal. SPINE: No scoliosis or deformity SKIN: No rashes CENTRAL NERVOUS SYSTEM: Alert and oriented -3. No focal deficits, tone is normal in all 4 extremities. PSYCHIATRIC: Alert and oriented -3. Appropriate affect. Intact judgment and insight. Results - Laboratory Findings CBC and BMP: 03/27/18 04:56 03/27/18 04:56 Abnormal lab findings: Abnormal Labs 03/26/18 03/26/18 03/26/18 10:55 10:55 15:10 WBC Hgb 12.5 L Hct MCHC 30.2 L RDW 19.9 H Plt Count Lymphocytes # Sodium 147 H Chloride 113 H Carbon Dioxide 21 L Creatinine Glucose 101 H POC Glucose (mg/dL) Phosphorus Magnesium Total Protein Albumin U Benzodiazepines Scrn Detected H Serum Alcohol 293 H* 03/27/18 03/27/18 03/27/18 04:06 04:56 04:56 WBC 3.2 L Hgb 11.8 L Hct 38.6 L MCHC 30.5 L RDW 19.7 H Plt Count 134 L Lymphocytes # 0.4 L Sodium Chloride Carbon Dioxide Creatinine 0.64 L Glucose 106 H POC Glucose (mg/dL) 132 H Phosphorus 2.2 L Magnesium 1.4 L Total Protein 5.8 L Albumin 3.4 L U Benzodiazepines Scrn Serum Alcohol - Diagnostic Findings Chest x-ray: report reviewed, image reviewed Additional studies: EKG reviewed Assessment and Plan Plan: Assessment: #1. Agitated delirium, likely related to EtOH withdrawal, requiring infusion of Ativan with subsequent sedation. Ativan drip has been discontinued, and the patient is slowly waking up #2. Alcohol intoxication #3. Suicidal ideation #4. History of major depression with previous suicidal attempt #5. A. fib/flutter with RVR #6. History of chronic A. fib, not on chronic anticoagulation possibly related to history of GI bleeding #7. Hypothyroidism #8. History of Arslan-en-Y bariatric surgery #9. History of sleep apnea #10. Previous history of alcohol abuse, it had been in remission for 2-1/2 years with recent relapse #11. history of coronary artery disease #12. Hypertension #13. Chronic anemia Plan: Continue suicidal watch, continue close monitoring for mental status changes, DT 's. Ativan remains on hold, and the patient is slowly waking up. Able to provide some answers to questioning. Currently denies suicidal ideation. Continue Cardizem drip for rate control. Chest x-ray has been reviewed by Dr. Bro, and shows possible atelectasis. Consult psychiatry. We'll continue to closely monitor. I performed a history & physical examination of the patient and discussed their management with my nurse practitioner, Rosi Pereira. I reviewed the nurse practitioner's note and agree with the documented findings and plan of care. Lung sounds are clear. The findings and the impression was discussed with the patient. I attest to the documentation by the nurse practitioner. Time with Patient: Greater than 30
[2018-03-27 13:43] LABS: Glucose,Whole Blood 115 mg/dL (75-99)
--- NOTE | 2018-03-27 14:18 | P.CRDCN ---
History of Present Illness History of present illness: This is Dr. Koch dictating a consult on this patient The patient was interviewed and examined by me IMPRESSION / ASSESSMENT: Typical atrial flutter with RVR Alcohol abuse Recent history of GI bleeding not a candidate for anticoagulation PLAN: Rate control with higher doses of beta blockers HPI Patient was admitted with suicidal ideation, depression and admitted to drinking a lot of alcohol. He recently lost his dog ROS: No fever chills or rigors, no cough, phlegm or expectoration, no nausea, vomiting or diarrhea, no hematuria, dysuria, no musculoskeletal complaints, no strokes or seizures, no skin lesions. EXAMINATION Blood pressure 1 3906 9 mmHg respirations 18, heart rate 126 beats a minute irregular Breath sounds are reduced bilaterally Heart sounds are irregular no murmurs No lower extremity edema REVIEW OF LABS, Hemoglobin 11.8, direct lites normal BUN and creatinine normal, low normal potassium and low phosphorus AST ALT 77 and 37 twelve-lead ECG consistent with typical atrial flutter Past Medical History Past Medical History: Atrial Fibrillation, Coronary Artery Disease (CAD), Chest Pain / Angina, Heart Failure, CVA/TIA, GERD/Reflux, GI Bleed, Hypertension, Myocardial Infarction ([place]), Seizure Disorder, Sleep Apnea/CPAP/BIPAP, Syncope, Thyroid Disorder, Vascular Disorder Additional Past Medical History / Comment(s): Pt. states he had a MA in 2013 and had a TIA in 1994. Does not currently have seizures. States he has varicose veins and poor venous circulation. Last Myocardial Infarction Date:: 2013 History of Any Multi-Drug Resistant Organisms: None Reported Past Surgical History: Bariatric Surgery, Bowel Resection, Heart Catheterization , Hernia Repair, Joint Replacement, Tonsillectomy Additional Past Surgical History / Comment(s): varicose vein surgery, Hernia repair as an . 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 Right total hip Past Anesthesia/Blood Transfusion Reactions: No Reported Reaction Past Psychological History: Depression Smoking Status: Former smoker Past Alcohol Use History: Abuse, Daily, Heavy Additional Past Alcohol Use History / Comment(s): . Past Drug Use History: None Reported - Past Family History Father Family Medical History: Cancer Additional Family Medical History / Comment(s): Lymphoma Sister(s) Family Medical History: Cancer Additional Family Medical History / Comment(s): Breast Medications and Allergies Home Medications Medication Instructions Recorded Confirmed Type Citalopram Hydrobromide [CeleXA] 40 mg PO DAILY 02/25/15 03/26/18 History lamoTRIgine [LaMICtal] 400 mg PO DAILY 02/25/15 03/26/18 History Levothyroxine Sodium [Synthroid] 300 mcg PO DAILY 02/26/15 03/26/18 History Disulfiram [Antabuse] 250 mg PO DAILY 03/26/18 03/26/18 History Ferrous Sulfate [Feosol] 325 mg PO DAILY 03/26/18 03/26/18 History Furosemide [Lasix] 20 mg PO DAILY 03/26/18 03/26/18 History Metoprolol Succinate (ER) [Toprol 50 mg PO DAILY 03/26/18 03/26/18 History Xl] QUEtiapine [SEROquel] 100 mg PO HS 03/26/18 03/26/18 History Ramipril [Altace] 5 mg PO HS 03/26/18 03/26/18 History Allergies Allergy/AdvReac Type Severity Reaction Status Date / Time latex Allergy Rash/Hives Verified 03/26/18 10:55 Physical Exam Vitals: Vital Signs Temp Pulse Pulse Resp BP BP Pulse Ox 03/27/18 13:00 126 H 18 139/69 98 03/27/18 12:30 119 H 23 131/75 96 03/27/18 12:00 98.4 F 89 19 129/67 95 03/27/18 11:30 92 18 108/91 95 03/27/18 11:00 114 H 20 98/77 98 03/27/18 10:30 119 H 19 119/70 97 03/27/18 10:00 105 H 19 137/63 95 03/27/18 09:30 123 H 19 128/71 97 03/27/18 09:00 124 H 21 119/72 97 03/27/18 08:30 121 H 22 126/72 96 03/27/18 08:00 98.2 F 131 H 61 H 126/81 88 L 03/27/18 07:30 98.2 F 128 H 21 126/81 92 L 03/27/18 07:00 98.6 F 133 H 21 137/90 97 03/27/18 06:30 134 H 22 96 03/27/18 06:00 100.4 F H 122 H 22 154/77 94 L 03/27/18 05:30 129 H 22 147/79 95 03/27/18 05:10 103 F H 123 H 16 156/92 94 L 03/27/18 05:00 118 H 14 95 03/27/18 04:50 130 H 11 L 97 03/27/18 04:40 122 H 12 95 03/27/18 04:30 133 H 14 93 L 03/27/18 04:20 124 H 15 179/123 96 03/27/18 04:10 121 H 16 207/93 95 03/27/18 04:00 103.2 F H 116 H 16 95 03/26/18 23:53 97.0 F L 144 H 17 139/89 94 L 03/26/18 20:00 98.9 F 120 H 16 168/96 96 03/26/18 17:34 97.8 F 67 18 186/96 94 L 03/26/18 17:26 108 H 18 180/89 98 03/26/18 16:30 139 H 16 121/77 100 03/26/18 15:54 138 H 16 144/88 98 03/26/18 15:32 134 H 18 131/97 98 03/26/18 15:10 149 H 18 140/102 97 Intake and Output 03/26/18 03/27/18 03/27/18 22:59 06:59 14:59 Intake Total 327.417 370 810 Output Total 1475 1010 Balance 327.417 -1105 -200 Intake: IV 320 710 LORazepam Vial 40 mg In 20 10 Dextrose 5% in Water 80 ml @ 4 MG/HR 10 mls/hr IV .Q10H [facility] Rx#:[id number] Sodium Chloride 0.9% 1, 300 700 000 ml @ 100 mls/hr IV . Q10H [facility] Rx#:[id number] Intake, IV Titration 77.417 50 100 Amount Diltiazem 50 mg In Sodium 77.417 50 100 Chloride 0.9% 40 ml @ 10 MG/HR 10 mls/hr IV .Q5H [facility] Rx#:[id number] Oral 250 Output: Urine 1475 1010 Other: Voiding Method Urinal Indwelling Catheter Indwelling Catheter # Voids 1 # Bowel Movements 1 Weight 122.47 kg 134.3 kg Results 03/27/18 04:56 03/27/18 04:56 Cardiac Enzymes 0903/26/18 03/26/18 Range/Units 10:55 16:50 22:48 AST (17-59) U/L CK-MB (CK-2) 1.9 1.8 1.4 (0.0-2.4) ng/mL Troponin I 0.024 0.028 0.022 (0.000-0.034) ng/mL 03/27/18 Range/Units 04:56 AST 37 (17-59) U/L CK-MB (CK-2) (0.0-2.4) ng/mL Troponin I (0.000-0.034) ng/mL Lipids 03/27/18 Range/Units 04:56 Triglycerides 128 (<150) mg/dL Cholesterol 166 (<200) mg/dL HDL Cholesterol 54 (40-60) mg/dL CBC 03/27/18 Range/Units 04:56 WBC 3.2 L (3.8-10.6) k/uL RBC 4.70 (4.30-5.90) m/uL Hgb 11.8 L (13.0-17.5) gm/dL Hct 38.6 L (39.0-53.0) % Plt Count 134 L (150-450) k/uL Comprehensive Metabolic Panel 03/27/18 Range/Units 04:56 Sodium 137 (137-145) mmol/L Potassium 3.8 (3.5-5.1) mmol/L Chloride 106 (98-107) mmol/L Carbon Dioxide 23 (22-30) mmol/L BUN 12 (9-20) mg/dL Creatinine 0.64 L (0.66-1.25) mg/dL Glucose 106 H (74-99) mg/dL Calcium 8.4 (8.4-10.2) mg/dL AST 37 (17-59) U/L ALT 37 (21-72) U/L Alkaline Phosphatase 91 (38-126) U/L Total Protein 5.8 L (6.3-8.2) g/dL Albumin 3.4 L (3.5-5.0) g/dL Current Medications Generic Name Dose Route Start Last Admin Trade Name Freq PRN Reason Stop Dose Admin Acetaminophen 650 mg 03/27/18 04:37 03/27/18 05:02 Tylenol Tab PO 650 mg Q4HR PRN Administration Fever and/or Mild Pain Citalopram Hydrobromide 40 mg 03/27/18 09:00 Celexa PO DAILY [facility] Famotidine 20 mg 03/26/18 21:00 03/27/18 08:50 Pepcid IV 20 mg Q12HR [facility] Administration Ferrous Sulfate 325 mg 03/27/18 09:00 Feosol PO DAILY [facility] Furosemide 20 mg 03/27/18 09:00 Lasix PO DAILY [facility] Gabapentin 100 mg 03/27/18 09:00 03/27/18 03:29 Neurontin PO 100 mg QID [facility] Administration Haloperidol Lactate 1 mg 03/26/18 10:53 03/27/18 01:28 Haldol IVP 1 mg Q8HR PRN Administration Agitation or Acute Psychosis Heparin Sodium (Porcine) 5,000 unit 03/26/18 21:00 03/27/18 08:49 Heparin SQ 5,000 unit Q12HR [facility] Administration Diltiazem HCl 50 mg/ Sodium 50 mls @ 10 mls/hr 03/26/18 14:30 03/27/18 12:29 Chloride IV 15 mg/hr .Q5H [facility] 15 mls/hr Administration 10 MG/HR Sodium Chloride 1,000 mls @ 100 mls/hr 03/26/18 14:30 03/27/18 13:08 Saline 0.9% IV 100 mls/hr .Q10H [facility] Administration Sodium Chloride 1,000 mls @ 100 mls/hr 03/26/18 17:00 03/27/18 08:17 Saline 0.9% IV Not Given .Q10H [facility] Lamotrigine 400 mg 03/27/18 09:00 Lamictal PO DAILY [facility] Levothyroxine Sodium 300 mcg 03/27/18 06:30 Synthroid PO DAILY@0630 [facility] Lorazepam 1 mg 03/26/18 14:19 03/27/18 02:29 Ativan IV 1 mg Q2HR PRN Administration CIWA 8 or 9 Lorazepam 1 mg 03/26/18 14:19 03/27/18 01:27 Ativan IV 1 mg Q1HR PRN Administration CIWA 10 to 15 Metoprolol Succinate 100 mg 03/27/18 09:00 Toprol Xl PO DAILY [facility] Multivitamins 1 each 03/27/18 12:00 Theragran PO DAILY@1200 [facility] Naloxone HCl 0.2 mg 03/27/18 04:37 Narcan IV Q2M PRN Opioid Reversal Nitroglycerin 0.4 mg 03/26/18 14:17 Nitrostat SUBLINGUAL Q5M PRN Chest Pain Quetiapine Fumarate 100 mg 03/26/18 21:00 03/26/18 20:04 Seroquel PO 100 mg HS [facility] Administration Thiamine HCl 100 mg 03/26/18 17:00 03/26/18 17:33 Vitamin B-1 PO 100 mg BID@1200,1700 [facility] Administration Tramadol HCl 50 mg 03/26/18 16:50 Ultram PO QID PRN Pain Intake and Output 03/26/18 03/27/18 03/27/18 22:59 06:59 14:59 Intake Total 327.417 370 810 Output Total 1475 1010 Balance 327.417 -1105 -200 Intake: IV 320 710 LORazepam Vial 40 mg In 20 10 Dextrose 5% in Water 80 ml @ 4 MG/HR 10 mls/hr IV .Q10H [facility] Rx#:[id number] Sodium Chloride 0.9% 1, 300 700 000 ml @ 100 mls/hr IV . Q10H [facility] Rx#:[id number] Intake, IV Titration 77.417 50 100 Amount Diltiazem 50 mg In Sodium 77.417 50 100 Chloride 0.9% 40 ml @ 10 MG/HR 10 mls/hr IV .Q5H [facility] Rx#:[id number] Oral 250 Output: Urine 1475 1010 Other: Voiding Method Urinal Indwelling Catheter Indwelling Catheter # Voids 1 # Bowel Movements 1 Weight 122.47 kg 134.3 kg 03/27/18 04:56 03/27/18 04:56
[2018-03-27] MEDS: LEVOTHYROXINE 100 MCG TAB PO SCH (15:58)
[2018-03-27] MEDS: CITALOPRAM HYDROBROMIDE 20 MG TAB PO SCH (15:59)
[2018-03-27] MEDS: FERROUS SULFATE 325 MG TAB PO SCH (15:59)
[2018-03-27] MEDS: MULTIVITAMINS, THERA 1 EACH TAB PO SCH (15:59)
[2018-03-27] MEDS: lamoTRIgine 100 MG TAB PO SCH (15:59)
[2018-03-27] MEDS: FUROSEMIDE 20 MG TAB PO SCH (15:59)
[2018-03-27] MEDS: THIAMINE 100 MG TAB PO SCH ×2 (15:59→16:07)
[2018-03-27] MEDS: METOPROLOL SUCCINATE (ER) 100 MG TAB.ER.24H PO SCH (15:59)
--- NOTE | 2018-03-27 16:00 | P.HP ---
Psychiatric H&P - . H&P Date: 03/27/18 History & Physical: Allergies Allergy/AdvReac Type Severity Reaction Status Date / Time latex Allergy Rash/Hives Verified 03/26/18 10:55 Vital Signs Temp 98.4 F 03/27/18 12:00 Pulse 126 H 03/27/18 13:00 Resp 18 03/27/18 13:00 BP 139/69 03/27/18 13:00 Pulse Ox 98 03/27/18 13:00 Intake & Output 03/26/18 03/27/18 03/27/18 18:59 06:59 18:59 Intake Total 277.417 420 810 Output Total 1475 1010 Balance 277.417 -1055 -200 Weight 122.47 kg 134.3 kg Intake: IV 320 710 LORazepam Vial 40 mg In 20 10 Dextrose 5% in Water 80 ml @ 4 MG/HR 10 mls/hr IV .Q10H [facility] Rx#:[id number] Sodium Chloride 0.9% 1, 300 700 000 ml @ 100 mls/hr IV . Q10H [facility] Rx#:[id number] Intake, IV Titration 27.417 100 100 Amount Diltiazem 50 mg In Sodium 27.417 100 100 Chloride 0.9% 40 ml @ 10 MG/HR 10 mls/hr IV .Q5H [facility] Rx#:[id number] Oral 250 Output: Urine 1475 1010 Other: Voiding Method Indwelling Catheter Indwelling Catheter # Voids 1 # Bowel Movements 1 Laboratory Last Values WBC 3.2 k/uL (3.8-10.6) L 03/27/18 04:56 RBC 4.70 m/uL (4.30-5.90) 03/27/18 04:56 Hgb 11.8 gm/dL (13.0-17.5) L 03/27/18 04:56 Hct 38.6 % (39.0-53.0) L 03/27/18 04:56 MCV 82.0 fL (80.0-100.0) 03/27/18 04:56 MCH 25.0 pg (25.0-35.0) 03/27/18 04:56 MCHC 30.5 g/dL (31.0-37.0) L 03/27/18 04:56 RDW 19.7 % (11.5-15.5) H 03/27/18 04:56 Plt Count 134 k/uL (150-450) L 03/27/18 04:56 Neutrophils % 73 % 03/27/18 04:56 Lymphocytes % 14 % 03/27/18 04:56 Monocytes % 10 % 03/27/18 04:56 Eosinophils % 1 % 03/27/18 04:56 Basophils % 1 % 03/27/18 04:56 Neutrophils # 2.3 k/uL (1.3-7.7) 03/27/18 04:56 Lymphocytes # 0.4 k/uL (1.0-4.8) L 03/27/18 04:56 Monocytes # 0.3 k/uL (0-1.0) 03/27/18 04:56 Eosinophils # 0.0 k/uL (0-0.7) 03/27/18 04:56 Basophils # 0.0 k/uL (0-0.2) 03/27/18 04:56 Hypochromasia Slight 03/27/18 04:56 Anisocytosis Slight 03/27/18 04:56 Microcytosis Slight 03/27/18 04:56 Sodium 137 mmol/L (137-145) 03/27/18 04:56 Potassium 3.8 mmol/L (3.5-5.1) 03/27/18 04:56 Chloride 106 mmol/L (98-107) 03/27/18 04:56 Carbon Dioxide 23 mmol/L (22-30) 03/27/18 04:56 Anion Gap 8 mmol/L 03/27/18 04:56 BUN 12 mg/dL (9-20) 03/27/18 04:56 Creatinine 0.64 mg/dL (0.66-1.25) L 03/27/18 04:56 Est GFR (CKD-EPI)AfAm >90 (>60 ml/min/1.73 sqM) 03/27/18 04:56 Est GFR (CKD-EPI)NonAf >90 (>60 ml/min/1.73 sqM) 03/27/18 04:56 Glucose 106 mg/dL (74-99) H 03/27/18 04:56 POC Glucose (mg/dL) 115 mg/dL (75-99) H 03/27/18 13:41 POC Glu Editorial Manager ID PearceJoanna 03/27/18 13:41 Plasma Lactic Acid Matt 1.5 mmol/L (0.7-2.0) 03/27/18 05:50 Calcium 8.4 mg/dL (8.4-10.2) 03/27/18 04:56 Phosphorus 2.2 mg/dL (2.5-4.5) L 03/27/18 04:56 Magnesium 1.4 mg/dL (1.6-2.3) L 03/27/18 04:56 Total Bilirubin 1.1 mg/dL (0.2-1.3) 03/27/18 04:56 AST 37 U/L (17-59) 03/27/18 04:56 ALT 37 U/L (21-72) 03/27/18 04:56 Alkaline Phosphatase 91 U/L (38-126) 03/27/18 04:56 Total Creatine Kinase 80 U/L (55-170) 03/26/18 22:48 CK-MB (CK-2) 1.4 ng/mL (0.0-2.4) 03/26/18 22:48 CK-MB (CK-2) Rel Index 1.8 03/26/18 22:48 Troponin I 0.022 ng/mL (0.000-0.034) 03/26/18 22:48 Total Protein 5.8 g/dL (6.3-8.2) L 03/27/18 04:56 Albumin 3.4 g/dL (3.5-5.0) L 03/27/18 04:56 Triglycerides 128 mg/dL (<150) 03/27/18 04:56 Cholesterol 166 mg/dL (<200) 03/27/18 04:56 LDL Cholesterol, Calc 86 mg/dL (0-99) 03/27/18 04:56 HDL Cholesterol 54 mg/dL (40-60) 03/27/18 04:56 Urine Color Light Yellow 03/27/18 04:10 Urine Appearance Clear (Clear) 03/27/18 04:10 Urine pH 6.5 (5.0-8.0) 03/27/18 04:10 Ur Specific Mascot 1.011 (1.001-1.035) 03/27/18 04:10 Urine Protein Negative (Negative) 03/27/18 04:10 Urine Glucose (UA) Negative (Negative) 03/27/18 04:10 Urine Ketones Negative (Negative) 03/27/18 04:10 Urine Blood Negative (Negative) 03/27/18 04:10 Urine Nitrite Negative (Negative) 03/27/18 04:10 Urine Bilirubin Negative (Negative) 03/27/18 04:10 Urine Urobilinogen <2.0 mg/dL (<2.0) 03/27/18 04:10 Ur Leukocyte Esterase Negative (Negative) 03/27/18 04:10 Salicylates <1.0 mg/dL 03/26/18 10:55 Urine Opiates Screen Not Detected (NotDetected) 03/26/18 15:10 Ur Oxycodone Screen Not Detected (NotDetected) 03/26/18 15:10 Urine Methadone Screen Not Detected (NotDetected) 03/26/18 15:10 Ur Propoxyphene Screen Not Detected (NotDetected) 03/26/18 15:10 Acetaminophen <10.0 ug/mL 03/26/18 10:55 Ur Barbiturates Screen Not Detected (NotDetected) 03/26/18 15:10 U Tricyclic Antidepress Not Detected (NotDetected) 03/26/18 15:10 Ur Phencyclidine Scrn Not Detected (NotDetected) 03/26/18 15:10 Ur Amphetamines Screen Not Detected (NotDetected) 03/26/18 15:10 U Methamphetamines Scrn Not Detected (NotDetected) 03/26/18 15:10 U Benzodiazepines Scrn Detected (NotDetected) H 03/26/18 15:10 Urine Cocaine Screen Not Detected (NotDetected) 03/26/18 15:10 U Marijuana (THC) Screen Not Detected (NotDetected) 03/26/18 15:10 Serum Alcohol 293 mg/dL H* 03/26/18 10:55 History of Present Illness This is a pleasant 50 years old male with past medical history of coronary artery disease, atrial fibrillation, heart failure, GI bleed, hypertension, seizure disorder, sleep apnea, syncope, hypothyroidism. Patient was brought by EMS, however patient does not know why he states that his neighbor called police for him and he hasn't been told why. However patient states he has been drinking every day about a gallon of wine. And he confirms to me that he has history of suicidal ideation and has the hospital for that reason about 10 years ago. And that he has a psychiatrist appointment to follow up with on May [address] Winston Holguin Consult requested for suicidal ideation. Past Medical History Past Medical History: Atrial Fibrillation, Coronary Artery Disease (CAD), Chest Pain / Angina, Heart Failure, CVA/TIA, GERD/Reflux, GI Bleed, Hypertension, Myocardial Infarction ([place]), Seizure Disorder, Sleep Apnea/CPAP/BIPAP, Syncope, Thyroid Disorder, Vascular Disorder Additional Past Medical History / Comment(s): Pt. states he had a IL in 2013 and had a TIA in 1994. Does not currently have seizures. States he has varicose veins and poor venous circulation. Last Myocardial Infarction Date:: 2013 History of Any Multi-Drug Resistant Organisms: None Reported Past Surgical History: Bariatric Surgery, Bowel Resection, Heart Catheterization , Hernia Repair, Tonsillectomy Additional Past Surgical History / Comment(s): varicose vein surgery, Hernia repair as an . 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 Past Anesthesia/Blood Transfusion Reactions: No Reported Reaction Past Psychological History: Depression Smoking Status: Former smoker Past Alcohol Use History: Abuse, Daily, Heavy recent relapse after being clean and sober for 2-1/2 years. Past Drug Use History: None Reported Mental Status examination: This is a 50-year-old male with past history bipolar affective disorder seen while lying in ICU bed and needs to be aroused constantly answer questions. When asked on today's stay he stated was 03/28/2018. He was able to stay while hospitalized but was unable to tolerate why he was in the hospital. Further questioning revealed that his neighbor called because he thought he was suicidal. In many aspects he maybe is not letting on and no one has gotten a statement from him saying suicidal to spend the ICU. He says with the demise of his dog and having to sleep and having been in the hospital 5 times this past year he feels overwhelmed, depressed given all he denies while sitting in bed and wants all the world to go away. When asked what I could do for him today he said world peace The patient presents partially asleep but easily arousable, pleasant, and cooperative. There calmly sedated and lying in an ICU bed without any agitated behavior. [He] reports that [depressed but denies rating it at all] mood. Affect is congruent and flat. [He has] deny having any suicidal or homicidal ideation intent or plan. [He] denies any auditory or visual hallucinations. There is no evidence of any delusional thought content. [Is] thought process is linear and [id number]. [He has] speech is fluent and nonpressured but is very hesitant because he is partially sedated. [His] memory and concentration is poor for the purposes of this session. Assessment: [This 50-year-old male with history of bipolar cardiovascular disease who is on disability due to bipolar affective disorder. He is acutely withdrawing at the present time from alcohol at the time of admission is 293 blood level and he was given IV Ativan titration drip and is clearly still sedated. At the present time he is not able to make decisions for himself on those does not have capacity to make decisions and should be kept in the case and he wants to leave leave AMA] Diagnosis: [Bipolar affective disorder type I depressed and has history of suicide attempt after his divorce this was precipitated today by the of his dog 2 weeks ago: He also has a history alcohol use disorder became clean and sober 2-1/2 years ago and relapsed within the last 2 weeks.] Plan: [Discontinue the suicide precautions and further evaluate tomorrow for alcohol withdrawal symptoms. If you need any assistance during the nighttime pill free to call me since I'm legal consultant tonrenard.] Thank you for the consult for this very interesting case and will follow tomorrow. Nicolas Miranda D.O. PhD. Attending psychiatrist) Tohmas Boothe 03/27/18 15:12 03/27/18 15:49
--- NOTE | 2018-03-27 16:29 | CDI ---
Last Revision, June 2017 Documentation Clarification Form Date: 03/27/2018 4:21:25 PM From: Lashaun Villareal RN, CCDS Admit Date: 03/26/2018 2:17:00 PM Patient Name: Radhames Davison Visit Number: [id number] ATTENTION: The Clinical Documentation Specialists (CDI) and [facility] Coding Staff appreciate your assistance in clarifying documentation. Please respond to the clarification below the line at the bottom and electronically sign. The CDI & [facility] Coding staff will review the response and follow-up if needed. Please note: Queries are made part of the Legal Health Record. If you have any questions, please contact the author of this message via ITS. Yash Parkinson MD A diagnosis of anemia lacks specificity to accurately reflect your patients severity of condition and clarification is needed. History/Risk Factors: A- Fib, CAD, CP, GERD,GIB, HTN, AR, Siezure disorder, EMMANUEL, TIA Clinical indicators: 03/27 Consult: "chronic anemia" Hemoglobin: 12.5/11.8 Hematocrit: 41.5/38.6 Treatment: lab monitoring Feosol 325 mg po daily In order to capture the severity of condition, please clarify the type of anemia and etiology if known: Chronic blood loss anemia Iron deficiency anemia Drug induced anemia Anemia due to malignancy Nutritional anemia Anemia of chronic disease Unable to determine Other, please specify Please continue to document in your progress notes and discharge summary in order to capture severity of illness and risk of mortality. Include clinical findings that support your diagnosis. Unable to determine MTDD
[2018-03-27] MEDS: QUEtiapine 100 MG TAB PO SCH (21:05)
[2018-03-28 05:13] LABS: Anisocytosis Slight; Basophils % (A) 1 %; Eosinophils # (A) 0.1 k/uL (0-0.7); Eosinophils % (A) 1 %; HCT 40.6 % (39.0-53.0); HGB 12.7 gm/dL (13.0-17.5); Hypochromasia Moderate; Lymphocytes # (A) 0.9 k/uL (1.0-4.8); Lymphocytes % (A) 22 %; MCH 25.5 pg (25.0-35.0); MCHC 31.2 g/dL (31.0-37.0); MCV 81.9 fL (80.0-100.0); Mean Platelet Volume 7.6; Microcytosis Slight; Monocytes # (A) 0.3 k/uL (0-1.0); Monocytes % (A) 7 %; Neutrophils # (A) 2.9 k/uL (1.3-7.7); Neutrophils % (A) 69 %; Platelet Count 154 k/uL (150-450); RBC 4.96 m/uL (4.30-5.90); RDW 19.2 % (11.5-15.5); WBC 4.2 k/uL (3.8-10.6)
[2018-03-28 05:24] LABS: ALT 34 U/L (21-72); AST 26 U/L (17-59); Albumin 3.1 g/dL (3.5-5.0); Alkaline Phosphatase 81 U/L (38-126); Anion Gap 8 mmol/L; Blood Urea Nitrogen 8 mg/dL (9-20); Calcium 8.9 mg/dL (8.4-10.2); Carbon Dioxide 23 mmol/L (22-30); Chloride 107 mmol/L (98-107); Glucose 131 mg/dL (74-99); Magnesium 2.1 mg/dL (1.6-2.3); Phosphorus 3.2 mg/dL (2.5-4.5); Potassium 3.9 mmol/L (3.5-5.1); Sodium 138 mmol/L (137-145); Total Bilirubin 1.2 mg/dL (0.2-1.3); Total Protein 5.5 g/dL (6.3-8.2)
[2018-03-28] MEDS ORDERED: POTASSIUM CHLORIDE ER 20 MEQ TAB.ER PO SCH (07:00)
[2018-03-28] MEDS: SODIUM CHLORIDE 0.9% 1,000 ML IV SCH ×5 (07:13→19:46)
[2018-03-28] MEDS: LEVOTHYROXINE 100 MCG TAB PO SCH (08:16)
[2018-03-28] MEDS: DILTIAZEM 50 MG in SODIUM CHLORIDE 0.9% 40 ML IV SCH ×2 (08:16→11:48)
[2018-03-28] MEDS: CITALOPRAM HYDROBROMIDE 20 MG TAB PO SCH (08:17)
[2018-03-28] MEDS: FAMOTIDINE 20 MG/2 ML VIAL IV SCH ×2 (08:18→20:29)
[2018-03-28] MEDS: lamoTRIgine 100 MG TAB PO SCH (08:18)
[2018-03-28] MEDS: GABAPENTIN 100 MG CAP PO SCH ×4 (08:18→20:30)
[2018-03-28] MEDS: HEPARIN SODIUM,PORCINE 5,000 UNIT/ML 1 ML VIAL SQ SCH ×2 (08:19→20:30)
[2018-03-28] MEDS: FUROSEMIDE 20 MG TAB PO SCH (08:19)
[2018-03-28] MEDS: FERROUS SULFATE 325 MG TAB PO SCH (08:19)
[2018-03-28] MEDS: METOPROLOL SUCCINATE (ER) 100 MG TAB.ER.24H PO SCH (08:25)
[2018-03-28] MEDS: LORazepam 2 MG/ML INJ IV PRN ×3 (09:49→18:33)
--- NOTE | 2018-03-28 10:14 | XR ---
EXAMINATION TYPE: XR chest 1V DATE OF EXAM: 03/28/2018 COMPARISON: 03/27/2018 HISTORY: Fever and shortness of breath TECHNIQUE: Single frontal view of the chest is obtained. FINDINGS: Heart is enlarged there subsegmental consolidation along the right lung base. Interstitium is improved. No pneumothorax. No obvious pleural effusion. Arthropathy of the shoulders. Left costop hrenic angle not included on exam. IMPRESSION: 1. Right lower lobe infiltrate. 2. Improving interstitial changes with reduction in bilateral infiltrate.
--- NOTE | 2018-03-28 11:19 | P.PN ---
Subjective Progress Note Date: 03/28/18 Principal diagnosis: Acute alcohol intoxication, and suicidal ideations with major depressive disorder. This is a 52-year-old white male patient of Dr. Mo, who to the emergency department on 03/26/2018 by the police a phone call was placed by the patient's neighbor who was concerned about patient's suicidal ideation, and alcohol intoxication. Patient has a history of depression, he is on Seroquel on an outpatient basis. Past history of EtOH abuse, the patient had been sober for 2- 1/2 years prior to this episode. Recently patient had to put his dog down, and he was depressed, and started drinking again. In the emergency department patient admitted to suicidal thoughts, and thoughts of walking into oncoming traffic. He does have a history of previous suicide attempt in the past. Urine drug screen showed benzodiazepines, serum alcohol level of 293, salicylates were less than 1, acetaminophen was less than 10, no other drugs were detected. Other labs showed the WBC 4.5, hemoglobin of 12.5, sodium of 147 , potassium is 4.7, chloride was 113, CO2 was 21, BUN was 17, creatinine was 0.94, troponins were negative 3, LFTs were negative. Patient was found to be quite tachycardic, EKG showed Afib/atrial flutter with a rate of 129 BPM. Initial chest x-ray showed normal chest. Patient was started on IV Cardizem for rate control, he was given a total of 3 L IV fluid boluses in the emergency department, he was started on CIWA protocol, and admitted to selective care unit. In the evening patient was noted to have us see was scale of 22, patient was severely restless, agitated and thrashing around, he was hallucinating, and profusely diaphoretic. Patient was given multiple doses of IV Ativan along with a dose of IV Haldol with no improvement in his agitation. Patient was then placed on Ativan drip at 4 mg per hour, and transferred to the intensive care for further monitoring. In the ICU patient became recently lethargic, and the Ativan drip has been discontinued. This morning he seen in consultation in the intensive care unit. He is obtunded, he opens his eyes and answers questions with repeated verbal stimulation. He knew he was in the hospital, he knew the president, and the correct year. He was able to say he had a tragedy, and he was able to convey that his neighbor was concerned about his well-being and placed a phone call to the police. No seizures. No agitation. No diaphoresis. Patient denies any chest pain or dyspnea. He remains in atrial flutter, and currently the rate is 126 BPM, patient continues on Cardizem drip for rate control at 10 mg per hour. Today's labs have been reviewed. WBC is 3.2, hemoglobin is 11.8, electrolytes and renal profile are unremarkable. Serum magnesium is 1.4, and phosphorus is 2.2 and this has been replaced per protocol. Today's chest x-ray has been reviewed, showed bilateral areas of infiltrate, likely related to atelectasis. Room air pulse ox is 95%, patient remains afebrile, hemodynamically stable. The catheter is in, and patient is producing 50-200 mL per hour Patient was reevaluated today on 03/28/2018, he is very comfortable, not agitated , not in any form of distress, alert oriented 3, remains on the alcohol withdrawal protocol. Patient was already seen by psychiatry, and he was cleared , felt no need for any more suicidal precautions. He was felt to be nonsuicidal as per psychiatry recommendation. Hence I plan to transfer the patient to a monitor bed today on selective, patient has intermittent episodes of atrial fibrillation with RVR, presently his rate seems to be better controlled. He is mostly on oral meds. All labs were reviewed he had a relatively normal CBC and the relatively normal basic metabolic profile. Objective - Vital Signs Vital signs: Vital Signs Temp 97.7 F 03/28/18 08:00 Pulse 107 H 03/28/18 10:00 Resp 22 03/28/18 10:00 BP 131/88 03/28/18 10:00 Pulse Ox 100 03/28/18 10:00 Intake & Output 03/27/18 03/28/18 03/28/18 18:59 06:59 18:59 Intake Total 6838.346 2742 650 Output Total 2325 2095 215 Balance -846.333 45 435 Weight 136 kg Intake: IV 1310 1100 400 LORazepam Vial 40 mg In 10 Dextrose 5% in Water 80 ml @ 4 MG/HR 10 mls/hr IV .Q10H [facility] Rx#:[id number] Sodium Chloride 0.9% 1, 1300 1100 400 000 ml @ 100 mls/hr IV . Q10H [facility] Rx#:[id number] Intake, IV Titration 168.667 Amount Diltiazem 50 mg In Sodium 168.667 Chloride 0.9% 40 ml @ 10 MG/HR 10 mls/hr IV .Q5H [facility] Rx#:[id number] Oral 1040 250 Output: Urine 2325 2095 215 Other: Voiding Method Indwelling Catheter Indwelling Catheter Indwelling Catheter # Bowel Movements 1 - Exam Physical Exam: Revealed a 52-year-old white male, obese, in no distress. Head: Atraumatic, normocephalic. HEENT:[Neck is supple.] [No neck masses.] [No thyromegaly.] [No JVD.] Chest: [Clear throughout, no crackles, no rhonchi, no wheezes.] Cardiac Exam: [Normal S1 and S2, no S3 gallop, no murmur.] Abdomen: [Soft, nontender, no megaly, no rebound, no guarding, normal bowel sounds.] Extremities: [No clubbing, no edema, no cyanosis.] Neurological Exam: [No focal neurologic deficit.] Lymphatics: No lymphadenopathy. Psychiatric: Normal mood, affect, and mental status examination. - Labs CBC & Chem 7: 03/28/18 04:36 03/28/18 04:36 Labs: Abnormal Lab Results - Last 24 Hours (Table) 03/27/18 03/28/18 03/28/18 Range/Units 13:41 04:36 04:36 Hgb 12.7 L (13.0-17.5) gm/dL RDW 19.2 H (11.5-15.5) % Lymphocytes # 0.9 L (1.0-4.8) k/uL BUN 8 L (9-20) mg/dL Glucose 131 H (74-99) mg/dL POC Glucose (mg/dL) 115 H (75-99) mg/dL Total Protein 5.5 L (6.3-8.2) g/dL Albumin 3.1 L (3.5-5.0) g/dL Microbiology - Last 24 Hours (Table) 03/27/18 04:56 Blood Culture - Preliminary Blood No Growth after 24 hours 03/27/18 04:56 Blood Culture - Preliminary Blood No Growth after 24 hours 03/27/18 04:10 Urine Culture - Preliminary Urine,Catheterized Assessment and Plan Assessment: #1. Agitated delirium, likely related to EtOH withdrawal, requiring infusion of Ativan with subsequent sedation. Ativan drip has been discontinued, today, the patient is feeling much better, and he is very appropriate. #2. Alcohol intoxication #3. Suicidal ideation, patient was cleared by psychiatry, and he is not considered suicidal anymore. #4. History of major depression with previous suicidal attempt #5. A. fib/flutter with RVR #6. History of chronic A. fib, not on chronic anticoagulation possibly related to history of GI bleeding #7. Hypothyroidism #8. History of Arslan-en-Y bariatric surgery #9. History of sleep apnea #10. Previous history of alcohol abuse, it had been in remission for 2-1/2 years with recent relapse #11. history of coronary artery disease #12. Hypertension #13. Chronic anemia Recommendation: Continue motor power connector withdrawal protocol, arrange for the patient to be transferred out of the ICU, no need for sister at bedside considering the psychiatry recommendation. Patient is considered by psychiatry as nonsuicidal. We will continue to follow on when necessary basis. Time with Patient: Less than 30
[2018-03-28] MEDS: THIAMINE 100 MG TAB PO SCH ×2 (11:49→17:08)
[2018-03-28] MEDS: MULTIVITAMINS, THERA 1 EACH TAB PO SCH (11:49)
--- NOTE | 2018-03-28 16:44 | P.PN ---
Subjective This is a pleasant 50 years old male with past medical history of coronary artery disease, atrial fibrillation, heart failure, GI bleed, hypertension, seizure disorder, sleep apnea, syncope, hypothyroidism. Patient was brought by EMS, however patient does not know why he states that his neighbor called police for him and he hasn't been told why. However patient states he has been drinking every day about a gallon of wine. And he confirms to me that he has history of suicidal ideation and has the hospital for that reason about 10 years ago. And that he has a psychiatrist appointment to follow up with on May [address] Winston Holguin He earlier he told the emergency room attending that he has suicidal ideation and plans, however when I walked into the room he denies to me suicidal ideation. Patient was on 07-11 and told the sitter at bedside that he wanted to kill himself, although at times he would not admit that. Psychiatric consultation. Continue with IV fluids. On admission also patient was noticed to have a high heart rates about 130-140, and it was irregular. However patient denies any chest pain or dyspnea or dizziness. Systolic blood pressure in the 120s. Patient states he has history of seizure related to alcohol withdrawal. Patient was started on Cardizem drip in the emergency room and his heart rates are coming down to 120, follow-up as per protocol 03/27/2018 Patient was transferred overnight to the ICU because of agitation which could be related to his delirium tremens that he needed Ativan drip. The patient is more sleepy this morning but it can be awakened easily before he goes back to sleep. Patient remains oriented to time person and place. Patient denies chest pain or dyspnea. Because patient is sleepy we cannot assess his suicidal ideation today. However yesterday when I talked to the patient he agrees to stay in the hospital for his heart problems and other issues. Psychiatrist consult is called and is pending. Patient continue on see what protocol however his drowsy now no more benzodiazepine currently. Continue with multivitamins and other medication. Heart rate is better controlled 03/28/2018 Patient is seen and examined in the ICU. Patient looks more awake and stable today. Agitated anymore. he Is a slightly disoriented. Patient with alcoholic withdrawals and high heart rate. It by psychiatrist team and their input is appreciated. As per psychiatrist recommendation is not suicidal and no need for suicidal precautions or sitter at bedside. However patient currently lost capacity to make medical decision due to delirium tremens from his alcohol withdrawal. However he is improving slightly. Critical Care input is appreciated. Patient remains on CIWA protocol and is on multivitamins react his heart rate still around 210. And remains on Cardizem drip however he denies chest pain or dyspnea. Review of Systems CONSTITUTIONAL: No fever, no malaise, no fatigue. HEENT: No recent visual problems or hearing problems. Denied any sore throat. CARDIOVASCULAR: No orthopnea, PND, no palpitations, no syncope. PULMONARY: No shortness of breath, no cough, no hemoptysis. GASTROINTESTINAL: No diarrhea, no nausea, no vomiting, no abdominal pain. Normoactive bowel sounds. NEUROLOGICAL: No headaches, no weakness, no numbness. HEMATOLOGICAL: Denies any bleeding or petechiae. GENITOURINARY: Denies any burning micturition, frequency, or urgency. MUSCULOSKELETAL/RHEUMATOLOGICAL: Denies any joint pain, swelling, or any muscle pain. ENDOCRINE: Denies any polyuria or polydipsia. Objective - Vital Signs Vital signs: Vital Signs Temp 98.5 F 03/28/18 15:58 Pulse 104 H 03/28/18 15:58 Resp 14 03/28/18 15:58 BP 144/100 03/28/18 15:58 Pulse Ox 98 03/28/18 15:58 Intake & Output 03/27/18 03/28/18 03/28/18 18:59 06:59 18:59 Intake Total 0769.238 5684 650 Output Total 2325 2095 215 Balance -846.333 45 435 Weight 136 kg Intake: IV 1310 1100 400 LORazepam Vial 40 mg In 10 Dextrose 5% in Water 80 ml @ 4 MG/HR 10 mls/hr IV .Q10H [facility] Rx#:[id number] Sodium Chloride 0.9% 1, 1300 1100 400 000 ml @ 100 mls/hr IV . Q10H [facility] Rx#:[id number] Intake, IV Titration 168.667 Amount Diltiazem 50 mg In Sodium 168.667 Chloride 0.9% 40 ml @ 10 MG/HR 10 mls/hr IV .Q5H [facility] Rx#:[id number] Oral 1040 250 Output: Urine 2325 2095 215 Other: Voiding Method Indwelling Catheter Indwelling Catheter Indwelling Catheter # Bowel Movements 1 - Exam -GENERAL: The patient is drowsy, he opens I to tactile and verbal stimuli, he knows where he is. But he goes back to sleep easily. not in any acute distress. Well developed, well nourished. Obese HEENT: Pupils are round and equally reacting to light. EOMI. No scleral icterus. No conjunctival pallor. Normocephalic, atraumatic. No pharyngeal erythema. No thyromegaly. CARDIOVASCULAR: S1 and S2 present. No murmurs, rubs, or gallops. Artery was controlled PULMONARY: Chest is clear to auscultation, no wheezing or crackles. ABDOMEN: Soft, nontender, nondistended, normoactive bowel sounds. No palpable organomegaly. MUSCULOSKELETAL: No joint swelling or deformity. EXTREMITIES: No cyanosis, clubbing, or pedal edema. NEUROLOGICAL: Gross neurological examination did not reveal any focal deficits. SKIN: No rashes. - Labs CBC & Chem 7: 03/28/18 04:36 03/28/18 12:09 Labs: Abnormal Lab Results - Last 24 Hours (Table) 03/28/18 03/28/18 Range/Units 04:36 04:36 Hgb 12.7 L (13.0-17.5) gm/dL RDW 19.2 H (11.5-15.5) % Lymphocytes # 0.9 L (1.0-4.8) k/uL BUN 8 L (9-20) mg/dL Glucose 131 H (74-99) mg/dL Total Protein 5.5 L (6.3-8.2) g/dL Albumin 3.1 L (3.5-5.0) g/dL Microbiology - Last 24 Hours (Table) 03/28/18 04:05 Gram Stain - Preliminary Sputum 03/27/18 04:10 Urine Culture - Final Urine,Catheterized 03/27/18 04:56 Blood Culture - Preliminary Blood No Growth after 24 hours 03/27/18 04:56 Blood Culture - Preliminary Blood No Growth after 24 hours Assessment and Plan Assessment: Possible Delirium tremens Possible Atrial fibrillation with RVR Suicidal ideation and plan Alcohol abuse History of alcohol withdrawal seizure Plan: This is a pleasant 52 years old male from [place] who presents because of A. fib and RVR with suicidal ideation related to alcoholism. Admit to the general medical floor with continuing the same treatment. Continue symptomatic treatment. Resume home medication. Continue with seizure precaution, suicidal precautions. Sitter at bedside with one-to-one. nurse communication is placed for patient cannot sign leaving AMA. Continue with negative inotropic medication. Patient was started on Cardizem drip on admission. s..Cardiology consultation. Continue with CIWA protocol. Banana bag with thiamine, multivitamin and folic acid. GI and DVT prophylaxis. Telemetry. Further recommendation is based on the clinical course the patient DVT prophylaxis on subcutaneous heparin GI prophylaxis Pepcid Prognosis is guarded Discussed with bed side nurse
[2018-03-28] MEDS: METOPROLOL SUCCINATE (ER) 50 MG TAB.ER.24H PO SCH (17:07)
[2018-03-28] MEDS: QUEtiapine 100 MG TAB PO SCH (20:30)
[2018-03-29] MEDS: LORazepam 2 MG/ML INJ IV PRN ×4 (00:10→18:30)
[2018-03-29] MEDS: SODIUM CHLORIDE 0.9% 1,000 ML IV SCH ×2 (05:00→16:39)
[2018-03-29 05:53] LABS: ALT 28 U/L (21-72); AST 35 U/L (17-59); Albumin 3.3 g/dL (3.5-5.0); Alkaline Phosphatase 65 U/L (38-126); Anion Gap 6 mmol/L; Blood Urea Nitrogen 13 mg/dL (9-20); Calcium 8.9 mg/dL (8.4-10.2); Carbon Dioxide 23 mmol/L (22-30); Chloride 110 mmol/L (98-107); Glucose 88 mg/dL (74-99); Phosphorus 4.1 mg/dL (2.5-4.5); Sodium 139 mmol/L (137-145); Total Bilirubin 0.9 mg/dL (0.2-1.3); Total Protein 5.8 g/dL (6.3-8.2)
[2018-03-29 06:14] LABS: Potassium 5.1 mmol/L (3.5-5.1)
[2018-03-29 06:19] LABS: Anisocytosis Slight; HGB 12.5 gm/dL (13.0-17.5); Hypochromasia Moderate; MCH 24.3 pg (25.0-35.0); MCHC 29.7 g/dL (31.0-37.0); MCV 82.1 fL (80.0-100.0); Mean Platelet Volume 8.6; Microcytosis Slight; Platelet Count 184 k/uL (150-450); RBC 5.12 m/uL (4.30-5.90); RDW 19.2 % (11.5-15.5); WBC 4.2 k/uL (3.8-10.6)
[2018-03-29] MEDS: LEVOTHYROXINE 100 MCG TAB PO SCH (06:30)
[2018-03-29 06:46] LABS: Band Neutrophils % 4 %; Eosinophils # (M) 0.13 k/uL (0-0.7); Lymphocytes # (M) 0.84 k/uL (1.0-4.8); Monocytes # (M) 0.29 k/uL (0-1.0); Neutrophils % (M) 66 %; Nucleated Red Blood Cells 0 /100 WBC (0-0); Total Cells Counted 100
[2018-03-29 06:49] LABS: Poikilocytosis (M) Present
[2018-03-29] MEDS: FUROSEMIDE 20 MG TAB PO SCH (09:17)
[2018-03-29] MEDS: FAMOTIDINE 20 MG/2 ML VIAL IV SCH (09:17)
[2018-03-29] MEDS: FERROUS SULFATE 325 MG TAB PO SCH (09:17)
[2018-03-29] MEDS: CITALOPRAM HYDROBROMIDE 20 MG TAB PO SCH (09:17)
[2018-03-29] MEDS: GABAPENTIN 100 MG CAP PO SCH ×4 (09:18→20:43)
[2018-03-29] MEDS: HEPARIN SODIUM,PORCINE 5,000 UNIT/ML 1 ML VIAL SQ SCH ×2 (09:18→20:43)
[2018-03-29] MEDS: lamoTRIgine 100 MG TAB PO SCH (09:18)
[2018-03-29] MEDS: METOPROLOL SUCCINATE (ER) 100 MG TAB.ER.24H PO SCH (09:19)
--- NOTE | 2018-03-29 09:54 | XR ---
EXAMINATION TYPE: XR chest 1V DATE OF EXAM: 03/29/2018 COMPARISON: Prior chest x-ray 03/28/2018 HISTORY: Fever and shortness of breath TECHNIQUE: Single frontal view of the chest is obtained. FINDINGS: Patient is rotated. Heart is enlarged. There is no evident pneumothorax or pleural effusio n. Suspect some patchy density posterior to the right heart. Pulmonary vascularity and dione are withi n normal limits. There are overlying cardiac leads. IMPRESSION: Cardiomegaly. Correlate for possible right lower lobe pneumonia or atelectasis, PA and l ateral chest x-ray may be of benefit.
--- NOTE | 2018-03-29 10:57 | P.PN ---
Subjective Progress Note Date: 03/29/18 Principal diagnosis: Acute alcohol intoxication, and suicidal ideations on presentation. This is a 52-year-old white male patient of Dr. Mo, who to the emergency department on 03/26/2018 by the police a phone call was placed by the patient's neighbor who was concerned about patient's suicidal ideation, and alcohol intoxication. Patient has a history of depression, he is on Seroquel on an outpatient basis. Past history of EtOH abuse, the patient had been sober for 2- 1/2 years prior to this episode. Recently patient had to put his dog down, and he was depressed, and started drinking again. In the emergency department patient admitted to suicidal thoughts, and thoughts of walking into oncoming traffic. He does have a history of previous suicide attempt in the past. Urine drug screen showed benzodiazepines, serum alcohol level of 293, salicylates were less than 1, acetaminophen was less than 10, no other drugs were detected. Other labs showed the WBC 4.5, hemoglobin of 12.5, sodium of 147 , potassium is 4.7, chloride was 113, CO2 was 21, BUN was 17, creatinine was 0.94, troponins were negative 3, LFTs were negative. Patient was found to be quite tachycardic, EKG showed Afib/atrial flutter with a rate of 129 BPM. Initial chest x-ray showed normal chest. Patient was started on IV Cardizem for rate control, he was given a total of 3 L IV fluid boluses in the emergency department, he was started on CIWA protocol, and admitted to selective care unit. In the evening patient was noted to have us see was scale of 22, patient was severely restless, agitated and thrashing around, he was hallucinating, and profusely diaphoretic. Patient was given multiple doses of IV Ativan along with a dose of IV Haldol with no improvement in his agitation. Patient was then placed on Ativan drip at 4 mg per hour, and transferred to the intensive care for further monitoring. In the ICU patient became recently lethargic, and the Ativan drip has been discontinued. This morning he seen in consultation in the intensive care unit. He is obtunded, he opens his eyes and answers questions with repeated verbal stimulation. He knew he was in the hospital, he knew the president, and the correct year. He was able to say he had a tragedy, and he was able to convey that his neighbor was concerned about his well-being and placed a phone call to the police. No seizures. No agitation. No diaphoresis. Patient denies any chest pain or dyspnea. He remains in atrial flutter, and currently the rate is 126 BPM, patient continues on Cardizem drip for rate control at 10 mg per hour. Today's labs have been reviewed. WBC is 3.2, hemoglobin is 11.8, electrolytes and renal profile are unremarkable. Serum magnesium is 1.4, and phosphorus is 2.2 and this has been replaced per protocol. Today's chest x-ray has been reviewed, showed bilateral areas of infiltrate, likely related to atelectasis. Room air pulse ox is 95%, patient remains afebrile, hemodynamically stable. The catheter is in, and patient is producing 50-200 mL per hour Patient was reevaluated today on 03/28/2018, he is very comfortable, not agitated , not in any form of distress, alert oriented 3, remains on the alcohol withdrawal protocol. Patient was already seen by psychiatry, and he was cleared , felt no need for any more suicidal precautions. He was felt to be nonsuicidal as per psychiatry recommendation. Hence I plan to transfer the patient to a monitor bed today on selective, patient has intermittent episodes of atrial fibrillation with RVR, presently his rate seems to be better controlled. He is mostly on oral meds. All labs were reviewed he had a relatively normal CBC and the relatively normal basic metabolic profile. Patient was reevaluated today on 03/29/2018, remains in the ICU as an overflow from selective, in atrial fibrillation but rate seems to be well-controlled. Hemodynamically stable, required early this morning IV Ativan to calm him down and the symptoms of early alcohol withdrawal. Patient apparently was agitated, restless, responded well to Ativan. Presently asymptomatic, sedated, but arousable, and follows simple instructions. CBC is relatively normal and basic metabolic profile is also unremarkable. Still waiting for a bed on selective to be transferred out of the ICU. Objective - Vital Signs Vital signs: Vital Signs Temp 97.7 F 03/29/18 08:00 Pulse 100 03/29/18 08:00 Resp 20 03/29/18 08:00 BP 162/96 03/29/18 08:00 Pulse Ox 96 03/29/18 04:00 Intake & Output 03/28/18 03/29/18 03/29/18 18:59 06:59 18:59 Intake Total 1600 900 Output Total 690 750 Balance 910 150 Weight 137.9 kg Intake: IV 1100 900 Sodium Chloride 0.9% 1, 1100 900 000 ml @ 100 mls/hr IV . Q10H [facility] Rx#:[id number] Oral 500 Output: Urine 690 750 Other: Voiding Method Indwelling Catheter Urinal Urinal # Bowel Movements 1 - Exam Physical Exam: Revealed a 52-year-old white male, obese, lethargic, in no distress, arousable. Head: Atraumatic, normocephalic. Moist mucous membranes noted. HEENT:[Neck is supple.] [No neck masses.] [No thyromegaly.] [No JVD.] No icterus is appreciated. Chest: [Diminished breath sound bilaterally, no crackles or rhonchi or wheezes. Cardiac Exam: [Distant S1 and S2, no S3 gallop, no murmur.] Abdomen: [Obese, Soft, nontender, no megaly, no rebound, no guarding, normal bowel sounds.] Extremities: [No erythema, no cyanosis, no clubbing. Neurological Exam: [Lethargic but arousable, otherwise no gross focal neurologic deficit. Lymphatics: No lymphadenopathy. Psychiatric: Lethargic arousable and no gross focal neurologic deficit normal mental status examination. - Labs CBC & Chem 7: 03/29/18 05:29 03/29/18 05:29 Labs: Abnormal Lab Results - Last 24 Hours (Table) 03/29/18 03/29/18 Range/Units 05:29 05:29 Hgb 12.5 L (13.0-17.5) gm/dL MCH 24.3 L (25.0-35.0) pg MCHC 29.7 L (31.0-37.0) g/dL RDW 19.2 H (11.5-15.5) % Lymphocytes # (Manual) 0.84 L (1.0-4.8) k/uL Chloride 110 H (98-107) mmol/L Total Protein 5.8 L (6.3-8.2) g/dL Albumin 3.3 L (3.5-5.0) g/dL Microbiology - Last 24 Hours (Table) 03/27/18 04:56 Blood Culture - Preliminary Blood No Growth after 48 hours 03/27/18 04:56 Blood Culture - Preliminary Blood No Growth after 48 hours 03/28/18 04:05 Gram Stain - Preliminary Sputum 03/27/18 04:10 Urine Culture - Final Urine,Catheterized Assessment and Plan Assessment: #1. Impending delirium tremens and alcohol withdrawal with signs and symptoms of agitation and restlessness requiring Ativan and the patient remains on the alcohol withdrawal protocol. #2 chronic atrial fibrillation, rate seems to be well-controlled, followed by cardiology. #3. . Chronic anemia, most likely related to his alcoholism, this could be addressed on an outpatient basis. #4. History of major depression with previous suicidal attempt, suicidal ideations on presentation to the ER, but when he was seen by psychiatry, felt that the patient was not suicidal. #5 multiple comorbidities including obstructive sleep apnea syndrome, previous Arslan-en-Y bariatric surgery, alcohol abuse, coronary artery disease, hypertension, Recommendation: Continue present treatment plan including alcohol withdrawal protocol, continue to monitor his cardiac issues, again the patient was felt to be nonsuicidal by psychiatry, may transfer to a monitor bed today once a bed becomes available. Time with Patient: Less than 30
[2018-03-29] MEDS: MULTIVITAMINS, THERA 1 EACH TAB PO SCH (11:56)
[2018-03-29] MEDS: THIAMINE 100 MG TAB PO SCH ×2 (11:57→17:26)
--- NOTE | 2018-03-29 14:44 | P.PN ---
Subjective This is a pleasant 50 years old male with past medical history of coronary artery disease, atrial fibrillation, heart failure, GI bleed, hypertension, seizure disorder, sleep apnea, syncope, hypothyroidism. Patient was brought by EMS, however patient does not know why he states that his neighbor called police for him and he hasn't been told why. However patient states he has been drinking every day about a gallon of wine. And he confirms to me that he has history of suicidal ideation and has the hospital for that reason about 10 years ago. And that he has a psychiatrist appointment to follow up with on May [address] Winston Holguin He earlier he told the emergency room attending that he has suicidal ideation and plans, however when I walked into the room he denies to me suicidal ideation. Patient was on 07-11 and told the sitter at bedside that he wanted to kill himself, although at times he would not admit that. Psychiatric consultation. Continue with IV fluids. On admission also patient was noticed to have a high heart rates about 130-140, and it was irregular. However patient denies any chest pain or dyspnea or dizziness. Systolic blood pressure in the 120s. Patient states he has history of seizure related to alcohol withdrawal. Patient was started on Cardizem drip in the emergency room and his heart rates are coming down to 120, follow-up as per protocol 03/27/2018 Patient was transferred overnight to the ICU because of agitation which could be related to his delirium tremens that he needed Ativan drip. The patient is more sleepy this morning but it can be awakened easily before he goes back to sleep. Patient remains oriented to time person and place. Patient denies chest pain or dyspnea. Because patient is sleepy we cannot assess his suicidal ideation today. However yesterday when I talked to the patient he agrees to stay in the hospital for his heart problems and other issues. Psychiatrist consult is called and is pending. Patient continue on see what protocol however his drowsy now no more benzodiazepine currently. Continue with multivitamins and other medication. Heart rate is better controlled 03/28/2018 Patient is seen and examined in the ICU. Patient looks more awake and stable today. Agitated anymore. he Is a slightly disoriented. Patient with alcoholic withdrawals and high heart rate. It by psychiatrist team and their input is appreciated. As per psychiatrist recommendation is not suicidal and no need for suicidal precautions or sitter at bedside. However patient currently lost capacity to make medical decision due to delirium tremens from his alcohol withdrawal. However he is improving slightly. Critical Care input is appreciated. Patient remains on CIWA protocol and is on multivitamins react his heart rate still around 210. And remains on Cardizem drip however he denies chest pain or dyspnea. 03/29/2018 pt today was transferred out of the ICU to select unit , he feels better, no chest pain , no dyspnea , he did not have a bowel movement but he is eating well and able to move around , his heart rate is been in the 90s-100s. he is off cardizem drip Review of Systems CONSTITUTIONAL: No fever, no malaise, no fatigue. HEENT: No recent visual problems or hearing problems. Denied any sore throat. CARDIOVASCULAR: No orthopnea, PND, no palpitations, no syncope. PULMONARY: No shortness of breath, no cough, no hemoptysis. GASTROINTESTINAL: No diarrhea, no nausea, no vomiting, no abdominal pain. Normoactive bowel sounds. NEUROLOGICAL: No headaches, no weakness, no numbness. HEMATOLOGICAL: Denies any bleeding or petechiae. GENITOURINARY: Denies any burning micturition, frequency, or urgency. MUSCULOSKELETAL/RHEUMATOLOGICAL: Denies any joint pain, swelling, or any muscle pain. ENDOCRINE: Denies any polyuria or polydipsia. Objective - Vital Signs Vital signs: Vital Signs Temp 97.6 F 03/29/18 12:42 Pulse 77 03/29/18 12:42 Resp 18 03/29/18 12:42 BP 117/83 03/29/18 12:42 Pulse Ox 93 L 03/29/18 12:42 Intake & Output 03/28/18 03/29/18 03/29/18 18:59 06:59 18:59 Intake Total 1600 900 800 Output Total 690 750 Balance 910 150 800 Weight 137.9 kg Intake: IV 1100 900 800 Sodium Chloride 0.9% 1, 1100 900 800 000 ml @ 100 mls/hr IV . Q10H [facility] Rx#:[id number] Oral 500 Output: Urine 690 750 Other: Voiding Method Indwelling Catheter Urinal Urinal # Bowel Movements 1 - Exam -GENERAL: The patient is drowsy, he opens I to tactile and verbal stimuli, he knows where he is. But he goes back to sleep easily. not in any acute distress. Well developed, well nourished. Obese HEENT: Pupils are round and equally reacting to light. EOMI. No scleral icterus. No conjunctival pallor. Normocephalic, atraumatic. No pharyngeal erythema. No thyromegaly. CARDIOVASCULAR: S1 and S2 present. No murmurs, rubs, or gallops. Artery was controlled PULMONARY: Chest is clear to auscultation, no wheezing or crackles. ABDOMEN: Soft, nontender, nondistended, normoactive bowel sounds. No palpable organomegaly. MUSCULOSKELETAL: No joint swelling or deformity. EXTREMITIES: No cyanosis, clubbing, or pedal edema. NEUROLOGICAL: Gross neurological examination did not reveal any focal deficits. SKIN: No rashes. - Labs CBC & Chem 7: 03/29/18 05:29 03/29/18 05:29 Labs: Abnormal Lab Results - Last 24 Hours (Table) 03/29/18 03/29/18 Range/Units 05:29 05:29 Hgb 12.5 L (13.0-17.5) gm/dL MCH 24.3 L (25.0-35.0) pg MCHC 29.7 L (31.0-37.0) g/dL RDW 19.2 H (11.5-15.5) % Lymphocytes # (Manual) 0.84 L (1.0-4.8) k/uL Chloride 110 H (98-107) mmol/L Total Protein 5.8 L (6.3-8.2) g/dL Albumin 3.3 L (3.5-5.0) g/dL Microbiology - Last 24 Hours (Table) 03/27/18 04:56 Blood Culture - Preliminary Blood No Growth after 48 hours 03/27/18 04:56 Blood Culture - Preliminary Blood No Growth after 48 hours 03/28/18 04:05 Gram Stain - Preliminary Sputum 03/27/18 04:10 Urine Culture - Final Urine,Catheterized Assessment and Plan Assessment: Possible Delirium tremens Possible Atrial fibrillation with RVR Suicidal ideation and plan Alcohol abuse History of alcohol withdrawal seizure Plan: This is a pleasant 52 years old male from [place] who presents because of A. fib and RVR with suicidal ideation related to alcoholism. Admit to the general medical floor with continuing the same treatment. Continue symptomatic treatment. Resume home medication. Continue with seizure precaution, suicidal precautions. Sitter at bedside with one-to-one. nurse communication is placed for patient cannot sign leaving AMA. Continue with negative inotropic medication. Patient was started on Cardizem drip on admission. s..Cardiology consultation. Continue with CIWA protocol. Banana bag with thiamine, multivitamin and folic acid. GI and DVT prophylaxis. Telemetry. Further recommendation is based on the clinical course the patient DVT prophylaxis on subcutaneous heparin GI prophylaxis Pepcid Prognosis is guarded Discussed with bed side nurse
[2018-03-29] MEDS: METOPROLOL SUCCINATE (ER) 50 MG TAB.ER.24H PO SCH (18:23)
[2018-03-29] MEDS: FAMOTIDINE 20 MG TAB PO SCH (20:42)
[2018-03-29] MEDS: QUEtiapine 100 MG TAB PO SCH (20:42)
[2018-03-30] MEDS: SODIUM CHLORIDE 0.9% 1,000 ML IV SCH ×3 (02:17→20:13)
[2018-03-30] MEDS: LORazepam 2 MG/ML INJ IV PRN ×4 (02:18→20:09)
[2018-03-30] MEDS: LEVOTHYROXINE 100 MCG TAB PO SCH (06:13)
[2018-03-30 06:15] LABS: Glucose,Whole Blood 90 mg/dL (75-99)
[2018-03-30 06:48] LABS: Anisocytosis Slight; Basophils % (A) 1 %; Eosinophils # (A) 0.1 k/uL (0-0.7); Eosinophils % (A) 2 %; HCT 40.7 % (39.0-53.0); HGB 12.5 gm/dL (13.0-17.5); Hypochromasia Slight; Lymphocytes # (A) 1.1 k/uL (1.0-4.8); Lymphocytes % (A) 26 %; MCH 24.9 pg (25.0-35.0); MCHC 30.6 g/dL (31.0-37.0); MCV 81.5 fL (80.0-100.0); Mean Platelet Volume 6.8; Microcytosis Slight; Monocytes # (A) 0.3 k/uL (0-1.0); Monocytes % (A) 7 %; Neutrophils # (A) 2.5 k/uL (1.3-7.7); Neutrophils % (A) 61 %; Platelet Count 218 k/uL (150-450); RDW 19.2 % (11.5-15.5); WBC 4.1 k/uL (3.8-10.6)
[2018-03-30 07:17] LABS: ALT 26 U/L (21-72); AST 23 U/L (17-59); Alkaline Phosphatase 68 U/L (38-126); Anion Gap 6 mmol/L; Blood Urea Nitrogen 12 mg/dL (9-20); Calcium 8.9 mg/dL (8.4-10.2); Carbon Dioxide 26 mmol/L (22-30); Chloride 108 mmol/L (98-107); Glucose 85 mg/dL (74-99); Magnesium 1.8 mg/dL (1.6-2.3); Phosphorus 4.6 mg/dL (2.5-4.5); Potassium 4.2 mmol/L (3.5-5.1); Sodium 140 mmol/L (137-145); Total Bilirubin 0.6 mg/dL (0.2-1.3); Total Protein 5.5 g/dL (6.3-8.2)
--- NOTE | 2018-03-30 08:33 | XR ---
EXAMINATION TYPE: XR chest 1V DATE OF EXAM: 03/30/2018 HISTORY: Shortness of breath. COMPARISON: 03/29/2018 TECHNIQUE: Single view of the chest is submitted. FINDINGS: Demonstrated are scattered senescent parenchymal change. There is patchy infiltrate right midlung zone. Correlate for pneumonia. The heart is stable. Hilar and mediastinal structures are within normal limits. Degenerative changes are seen of the dorsal spine. IMPRESSION: 1. There is patchy infiltrate right midlung zone. Correlate for pneumonia.
[2018-03-30] MEDS: CITALOPRAM HYDROBROMIDE 20 MG TAB PO SCH (10:03)
[2018-03-30] MEDS: FERROUS SULFATE 325 MG TAB PO SCH (10:03)
[2018-03-30] MEDS: GABAPENTIN 100 MG CAP PO SCH ×4 (10:04→20:13)
[2018-03-30] MEDS: FUROSEMIDE 20 MG TAB PO SCH (10:04)
[2018-03-30] MEDS: lamoTRIgine 100 MG TAB PO SCH (10:05)
[2018-03-30] MEDS: METOPROLOL SUCCINATE (ER) 50 MG TAB.ER.24H PO SCH (10:05)
[2018-03-30] MEDS: HEPARIN SODIUM,PORCINE 5,000 UNIT/ML 1 ML VIAL SQ SCH ×2 (10:07→20:13)
[2018-03-30] MEDS: FAMOTIDINE 20 MG TAB PO SCH ×2 (10:08→20:13)
[2018-03-30] MEDS: AMOXIC-POT CLAV 875-125MG 1 EACH TAB PO SCH ×2 (13:15→20:12)
[2018-03-30] MEDS: THIAMINE 100 MG TAB PO SCH ×2 (13:16→16:49)
[2018-03-30] MEDS: MULTIVITAMINS, THERA 1 EACH TAB PO SCH (13:16)
--- NOTE | 2018-03-30 14:41 | P.PN ---
Subjective Progress Note Date: 03/30/18 This is a 52-year-old white male patient of Dr. Mo, who to the emergency department on 03/26/2018 by the police a phone call was placed by the patient's neighbor who was concerned about patient's suicidal ideation, and alcohol intoxication. Patient has a history of depression, he is on Seroquel on an outpatient basis. Past history of EtOH abuse, the patient had been sober for 2- 1/2 years prior to this episode. Recently patient had to put his dog down, and he was depressed, and started drinking again. In the emergency department patient admitted to suicidal thoughts, and thoughts of walking into oncoming traffic. He does have a history of previous suicide attempt in the past. Urine drug screen showed benzodiazepines, serum alcohol level of 293, salicylates were less than 1, acetaminophen was less than 10, no other drugs were detected. Other labs showed the WBC 4.5, hemoglobin of 12.5, sodium of 147 , potassium is 4.7, chloride was 113, CO2 was 21, BUN was 17, creatinine was 0.94, troponins were negative 3, LFTs were negative. Patient was found to be quite tachycardic, EKG showed Afib/atrial flutter with a rate of 129 BPM. Initial chest x-ray showed normal chest. Patient was started on IV Cardizem for rate control, he was given a total of 3 L IV fluid boluses in the emergency department, he was started on CIWA protocol, and admitted to selective care unit. In the evening patient was noted to have us see was scale of 22, patient was severely restless, agitated and thrashing around, he was hallucinating, and profusely diaphoretic. Patient was given multiple doses of IV Ativan along with a dose of IV Haldol with no improvement in his agitation. Patient was then placed on Ativan drip at 4 mg per hour, and transferred to the intensive care for further monitoring. In the ICU patient became recently lethargic, and the Ativan drip has been discontinued. Patient was seen in consultation yesterday by Dr. Koch. Adjustments were made in his beta arline dose, heart rate today in the 80s, blood pressure 116/ 70. Sodium 140, potassium 4.2, BUN 12, creatinine 0.8. Asked x-ray performed today showed a patchy infiltrate in the right midlung zone. Correlate for pneumonia. We will obtain a TSH level and an echocardiogram with Doppler study , if normal patient may be able to transfer to [facility] unit today. Objective - Vital Signs Vital signs: Vital Signs Temp 98.0 F 03/30/18 14:29 Pulse 101 H 03/30/18 14:29 Resp 16 03/30/18 14:29 BP 116/70 03/30/18 14:29 Pulse Ox 97 03/30/18 14:29 Intake & Output 03/29/18 03/30/18 03/30/18 18:59 06:59 18:59 Intake Total 9470 866 4029 Balance 1897 563 4114 Weight 125.9 kg Intake: IV 800 800 Sodium Chloride 0.9% 1, 800 000 ml @ 100 mls/hr IV . Q10H [facility] Rx#:[id number] Sodium Chloride 0.9% 1, 800 000 ml @ 100 mls/hr IV . Q10H [facility] Rx#:[id number] Oral 480 950 200 Other: Voiding Method Toilet Toilet Toilet # Voids 1 2 # Bowel Movements 1 - Exam GENERAL EXAM: Obtunded, but arousable 52-year-old white male comfortable in no apparent distress. HEAD: Normocephalic/atraumatic. EYES: Normal reaction of pupils, equal size. Conjunctiva pink, sclera white. NOSE: Clear with pink turbinates. THROAT: No erythema or exudates. NECK: No masses, no JVD, no thyroid enlargement, no adenopathy. CHEST: No chest wall deformity. Symmetrical expansion. LUNGS: Equal air entry with no crackles, wheeze, rhonchi or dullness. CVS: irregular rate and rhythm, normal S1 and S2, no gallops, no murmurs, no rubs ABDOMEN: Soft, nontender. No hepatosplenomegaly, normal bowel sounds, no guarding or rigidity. EXTREMITIES: No clubbing, no edema, no cyanosis, 2+ pulses and upper and lower extremities. MUSCULOSKELETAL: Muscle strength and tone normal. SPINE: No scoliosis or deformity SKIN: No rashes CENTRAL NERVOUS SYSTEM: Alert and oriented -3. No focal deficits, tone is normal in all 4 extremities. PSYCHIATRIC: Alert and oriented -3. Appropriate affect. Intact judgment and insight. - Labs CBC & Chem 7: 03/30/18 06:20 03/30/18 06:20 Labs: Abnormal Lab Results - Last 24 Hours (Table) 03/30/18 03/30/18 Range/Units 06:20 06:20 Hgb 12.5 L (13.0-17.5) gm/dL MCH 24.9 L (25.0-35.0) pg MCHC 30.6 L (31.0-37.0) g/dL RDW 19.2 H (11.5-15.5) % Chloride 108 H (98-107) mmol/L Phosphorus 4.6 H (2.5-4.5) mg/dL Total Protein 5.5 L (6.3-8.2) g/dL Albumin 3.0 L (3.5-5.0) g/dL Microbiology - Last 24 Hours (Table) 03/28/18 04:05 Gram Stain - Final Sputum Sputum Culture - Final Strep agalactiae - (group b) 03/27/18 04:56 Blood Culture - Preliminary Blood No Growth after 72 hours 03/27/18 04:56 Blood Culture - Preliminary Blood No Growth after 72 hours Assessment and Plan Plan: Assessment and plan: #1. Agitated delirium, likely related to EtOH withdrawal #2. Alcohol intoxication #3. Suicidal ideation #4. History of major depression with previous suicidal attempt #5. Typical atrial flutter with rapid ventricular response, recent GI bleed not candidate for anticoagulation #6. History of chronic A. fib #7. Hypothyroidism #8. History of [place] bariatric surgery #9. History of sleep apnea #10. Previous history of alcohol abuse, it had been in remission for 2-1/2 years with recent relapse #11 hypertension #12 anemia Plan Will obtain a TSH level, as well as an echocardiogram with Doppler study, if normal patient may be able to be transferred to the [facility] unit and we will follow as needed. DNP note has been reviewed, I agree with a documented findings and plan of care. Patient was seen and examined.
--- NOTE | 2018-03-30 16:26 | P.PN ---
Subjective This is a pleasant 50 years old male with past medical history of coronary artery disease, atrial fibrillation, heart failure, GI bleed, hypertension, seizure disorder, sleep apnea, syncope, hypothyroidism. Patient was brought by EMS, however patient does not know why he states that his neighbor called police for him and he hasn't been told why. However patient states he has been drinking every day about a gallon of wine. And he confirms to me that he has history of suicidal ideation and has the hospital for that reason about 10 years ago. And that he has a psychiatrist appointment to follow up with on May [address] Winston Holguin He earlier he told the emergency room attending that he has suicidal ideation and plans, however when I walked into the room he denies to me suicidal ideation. Patient was on 07-11 and told the sitter at bedside that he wanted to kill himself, although at times he would not admit that. Psychiatric consultation. Continue with IV fluids. On admission also patient was noticed to have a high heart rates about 130-140, and it was irregular. However patient denies any chest pain or dyspnea or dizziness. Systolic blood pressure in the 120s. Patient states he has history of seizure related to alcohol withdrawal. Patient was started on Cardizem drip in the emergency room and his heart rates are coming down to 120, follow-up as per protocol 03/27/2018 Patient was transferred overnight to the ICU because of agitation which could be related to his delirium tremens that he needed Ativan drip. The patient is more sleepy this morning but it can be awakened easily before he goes back to sleep. Patient remains oriented to time person and place. Patient denies chest pain or dyspnea. Because patient is sleepy we cannot assess his suicidal ideation today. However yesterday when I talked to the patient he agrees to stay in the hospital for his heart problems and other issues. Psychiatrist consult is called and is pending. Patient continue on see what protocol however his drowsy now no more benzodiazepine currently. Continue with multivitamins and other medication. Heart rate is better controlled 03/28/2018 Patient is seen and examined in the ICU. Patient looks more awake and stable today. Agitated anymore. he Is a slightly disoriented. Patient with alcoholic withdrawals and high heart rate. It by psychiatrist team and their input is appreciated. As per psychiatrist recommendation is not suicidal and no need for suicidal precautions or sitter at bedside. However patient currently lost capacity to make medical decision due to delirium tremens from his alcohol withdrawal. However he is improving slightly. Critical Care input is appreciated. Patient remains on CIWA protocol and is on multivitamins react his heart rate still around 210. And remains on Cardizem drip however he denies chest pain or dyspnea. 03/29/2018 pt today was transferred out of the ICU to select unit , he feels better, no chest pain , no dyspnea , he did not have a bowel movement but he is eating well and able to move around , his heart rate is been in the 90s-100s. he is off cardizem drip 03/30/2018 Patient seen and examined in the select unit. Cardiology follow-up is appreciated. They recommended an echo to check TSH level. Patient CIWA score is still fluctuating and today is at 11 patient still on IV Ativan. Patient with no fever or leukocytosis however patient looks lethargic. Repeat chest x-ray was suspicious for patchy infiltrate in the right mid lung zone suspicious for pneumonia. Patient is already on Augmentin for bilateral pneumonia, patient with no fever or leukocytosis. Continue to monitor. We'll ask psychiatry for follow-up tomorrow Objective - Vital Signs Vital signs: Vital Signs Temp 97 F L 03/30/18 16:00 Pulse 81 03/30/18 16:00 Resp 16 03/30/18 16:00 BP 136/83 03/30/18 16:00 Pulse Ox 97 03/30/18 16:00 Intake & Output 03/29/18 03/30/18 03/30/18 18:59 06:59 18:59 Intake Total 5129 636 0726 Balance 4082 007 1805 Weight 125.9 kg Intake: IV 800 800 Sodium Chloride 0.9% 1, 800 000 ml @ 100 mls/hr IV . Q10H [facility] Rx#:[id number] Sodium Chloride 0.9% 1, 800 000 ml @ 100 mls/hr IV . Q10H [facility] Rx#:[id number] Oral 480 950 400 Other: Voiding Method Toilet Toilet Toilet # Voids 1 2 # Bowel Movements 1 - Exam -GENERAL: Patient, in bed, he is alert awake oriented exit [address] and person, not in any acute distress. Well developed, well nourished. Obese HEENT: Pupils are round and equally reacting to light. EOMI. No scleral icterus. No conjunctival pallor. Normocephalic, atraumatic. No pharyngeal erythema. No thyromegaly. CARDIOVASCULAR: S1 and S2 present. No murmurs, rubs, or gallops. Artery was controlled PULMONARY: Chest is clear to auscultation, no wheezing or crackles. ABDOMEN: Soft, nontender, nondistended, normoactive bowel sounds. No palpable organomegaly. MUSCULOSKELETAL: No joint swelling or deformity. EXTREMITIES: No cyanosis, clubbing, or pedal edema. NEUROLOGICAL: Gross neurological examination did not reveal any focal deficits. SKIN: No rashes. - Labs CBC & Chem 7: 03/30/18 06:20 03/30/18 06:20 Labs: Abnormal Lab Results - Last 24 Hours (Table) 03/30/18 03/30/18 Range/Units 06:20 06:20 Hgb 12.5 L (13.0-17.5) gm/dL MCH 24.9 L (25.0-35.0) pg MCHC 30.6 L (31.0-37.0) g/dL RDW 19.2 H (11.5-15.5) % Chloride 108 H (98-107) mmol/L Phosphorus 4.6 H (2.5-4.5) mg/dL Total Protein 5.5 L (6.3-8.2) g/dL Albumin 3.0 L (3.5-5.0) g/dL Microbiology - Last 24 Hours (Table) 03/28/18 04:05 Gram Stain - Final Sputum Sputum Culture - Final Strep agalactiae - (group b) 03/27/18 04:56 Blood Culture - Preliminary Blood No Growth after 72 hours 03/27/18 04:56 Blood Culture - Preliminary Blood No Growth after 72 hours Assessment and Plan Assessment: Delirium tremens Atrial fibrillation with RVR Bilateral pneumonia, on antibiotic Alcohol abuse History of alcohol withdrawal seizure Plan: This is a pleasant 52 years old male from [place] who presents because of A. fib and RVR with suicidal ideation related to alcoholism. Admit to the general medical floor with continuing the same treatment. Continue symptomatic treatment. Resume home medication. Continue with seizure precaution, suicidal precautions. Sitter at bedside with one-to-one. nurse communication is placed for patient cannot sign leaving AMA. Continue with negative inotropic medication. Patient was started on Cardizem drip on admission. s..Cardiology consultation. Continue with CIWA protocol. Banana bag with thiamine, multivitamin and folic acid. GI and DVT prophylaxis. Telemetry. Further recommendation is based on the clinical course the patient DVT prophylaxis on subcutaneous heparin GI prophylaxis Pepcid Prognosis is guarded Discussed with bed side nurse
[2018-03-30] MEDS: ACETAMINOPHEN TAB 325 MG TAB PO PRN (18:18)
[2018-03-30] MEDS: QUEtiapine 100 MG TAB PO SCH (20:13)
[2018-03-31] MEDS: FUROSEMIDE 20 MG TAB PO SCH (07:57)
[2018-03-31] MEDS: FAMOTIDINE 20 MG TAB PO SCH (07:57)
[2018-03-31] MEDS: GABAPENTIN 100 MG CAP PO SCH ×2 (07:57→11:55)
[2018-03-31] MEDS: FERROUS SULFATE 325 MG TAB PO SCH (07:57)
[2018-03-31] MEDS: METOPROLOL SUCCINATE (ER) 50 MG TAB.ER.24H PO SCH (07:57)
[2018-03-31] MEDS: CITALOPRAM HYDROBROMIDE 20 MG TAB PO SCH (07:57)
[2018-03-31] MEDS: LEVOTHYROXINE 100 MCG TAB PO SCH (07:58)
[2018-03-31] MEDS: SODIUM CHLORIDE 0.9% 1,000 ML IV SCH (07:58)
[2018-03-31] MEDS: lamoTRIgine 100 MG TAB PO SCH (07:58)
[2018-03-31] MEDS: HEPARIN SODIUM,PORCINE 5,000 UNIT/ML 1 ML VIAL SQ SCH (07:58)
[2018-03-31] MEDS: AMOXIC-POT CLAV 875-125MG 1 EACH TAB PO SCH (07:58)
[2018-03-31] MEDS: ACETAMINOPHEN TAB 325 MG TAB PO PRN (08:08)
[2018-03-31 08:27] LABS: Anisocytosis Slight; Basophils % (A) 1 %; Eosinophils # (A) 0.1 k/uL (0-0.7); Eosinophils % (A) 2 %; HCT 40.4 % (39.0-53.0); HGB 12.4 gm/dL (13.0-17.5); Hypochromasia Moderate; Lymphocytes % (A) 19 %; MCHC 30.6 g/dL (31.0-37.0); MCV 81.6 fL (80.0-100.0); Mean Platelet Volume 7.9; Microcytosis Slight; Monocytes # (A) 0.4 k/uL (0-1.0); Monocytes % (A) 7 %; Neutrophils # (A) 3.6 k/uL (1.3-7.7); Neutrophils % (A) 69 %; Platelet Count 263 k/uL (150-450); RBC 4.96 m/uL (4.30-5.90); RDW 19.3 % (11.5-15.5); WBC 5.3 k/uL (3.8-10.6)
[2018-03-31 08:37] LABS: ALT 23 U/L (21-72); AST 25 U/L (17-59); Albumin 3.2 g/dL (3.5-5.0); Alkaline Phosphatase 71 U/L (38-126); Anion Gap 8 mmol/L; Blood Urea Nitrogen 13 mg/dL (9-20); Calcium 8.8 mg/dL (8.4-10.2); Carbon Dioxide 25 mmol/L (22-30); Chloride 108 mmol/L (98-107); Glucose 99 mg/dL (74-99); Phosphorus 4.1 mg/dL (2.5-4.5); Potassium 4.4 mmol/L (3.5-5.1); Sodium 141 mmol/L (137-145); Total Bilirubin 0.6 mg/dL (0.2-1.3); Total Protein 5.7 g/dL (6.3-8.2)
--- NOTE | 2018-03-31 08:38 | XR ---
EXAMINATION TYPE: XR chest 1V DATE OF EXAM: 03/31/2018 COMPARISON: Prior chest x-ray 03/30/2018 HISTORY: Fever and shortness of breath TECHNIQUE: Single frontal view of the chest is obtained. FINDINGS: Heart size may be accentuated by rotation. No pneumothorax or pleural effusion evident. Pa tchy density present in the right midlung persists. IMPRESSION: Correlate for possible pneumonia. Follow-up to resolution.
[2018-03-31 09:03] VITALS: RESP 16
--- NOTE | 2018-03-31 10:21 | ECHOF ---
Referral Reason:afib MEASUREMENTS -------- HEIGHT: 182.9 cm WEIGHT: 125.6 kg BP: 116/70 RVIDd: 3.7 cm (< 3.3) IVSd: 1.5 cm (0.6 - 1.1) LVIDd: 5.2 cm (3.9 - 5.3) LVPWd: 1.5 cm (0.6 - 1.1) IVSs: 2.0 cm LVIDs: 4.2 cm LVPWs: 2.0 cm LA Diam: 4.3 cm (2.7 - 3.8) LAESV Index (A-L): 33.60 ml/m Ao Diam: 3.6 cm (2.0 - 3.7) AV Cusp: 2.2 cm (1.5 - 2.6) MV EXCURSION: 18.742 mm (> 18.000) MV EF SLOPE: 157 mm/s (70 - 150) EPSS: 0.3 cm RAP: 5.00 mmHg RVSP: 27.09 mmHg FINDINGS -------- Atrial fibrillation. This was a technically difficult study with suboptimal views. The left ventricular size is normal. There is moderate concentric left ventricular hypertrophy. O verall left ventricular systolic function is mild-moderately impaired with, an EF between 40 - 45 %. The right ventricle is mild to moderately enlarged. LA is moderately dilated 34-39 ml/m2 The right atrium was not well visualized. Lumason used The aortic valve is trileaflet and appears structurally normal. The mitral valve leaflets are mildly thickened. Mild mitral annular calcification present. Mild m itral regurgitation is present. Mild tricuspid regurgitation present. Right ventricular systolic pressure is normal at < 35 mmHg. There is no pulmonic regurgitation present. The aortic root size is normal. Normal inferior vena cava with normal inspiratory collapse consistent with estimated right atrial pre ssure of 5 mmHg. There is no pericardial effusion. CONCLUSIONS -------- 1. Atrial fibrillation. 2. This was a technically difficult study with suboptimal views. 3. The left ventricular size is normal. 4. There is moderate concentric left ventricular hypertrophy. 5. Overall left ventricular systolic function is mild-moderately impaired with, an EF between 40 - 45 %. 6. The right ventricle is mild to moderately enlarged. 7. LA is moderately dilated 34-39 ml/m2 8. The right atrium was not well visualized. 9. Lumason used 10. The aortic valve is trileaflet and appears structurally normal. 11. The mitral valve leaflets are mildly thickened. 12. Mild mitral annular calcification present. 13. Mild mitral regurgitation is present. 14. Mild tricuspid regurgitation present. 15. Right ventricular systolic pressure is normal at < 35 mmHg. 16. There is no pulmonic regurgitation present. 17. The aortic root size is normal. 18. Normal inferior vena cava with normal inspiratory collapse consistent with estimated right atrial pressure of 5 mmHg. 19. There is no pericardial effusion. TRAVEL SPECIALIST: Jaleesa Lazaro RDCS
--- NOTE | 2018-03-31 11:44 | P.CN ---
Psychiatric Consult - . Consult date: 03/31/18 Consult:: History of Present Illness/Revaluate patient since transfer to general medical floor This is a pleasant 50 years old male with past medical history of coronary artery disease, atrial fibrillation, heart failure, GI bleed, hypertension, seizure disorder, sleep apnea, syncope, hypothyroidism. Patient was brought by EMS, however patient does not know why he states that his neighbor called police for him and he hasn't been told why. However patient states he has been drinking every day about a gallon of wine. And he confirms to me that he has history of suicidal ideation and has the hospital for that reason about 10 years ago. And that he has a psychiatrist appointment to follow up with on May [address] Winston Holguin Consult requested for suicidal ideation. Past Medical History Past Medical History: Atrial Fibrillation, Coronary Artery Disease (CAD), Chest Pain / Angina, Heart Failure, CVA/TIA, GERD/Reflux, GI Bleed, Hypertension, Myocardial Infarction ([place]), Seizure Disorder, Sleep Apnea/CPAP/BIPAP, Syncope, Thyroid Disorder, Vascular Disorder Additional Past Medical History / Comment(s): Pt. states he had a [place] in 2013 and had a TIA in 1994. Does not currently have seizures. States he has varicose veins and poor venous circulation. Last Myocardial Infarction Date:: 2013 History of Any Multi-Drug Resistant Organisms: None Reported Past Surgical History: Bariatric Surgery, Bowel Resection, Heart Catheterization , Hernia Repair, Tonsillectomy Additional Past Surgical History / Comment(s): varicose vein surgery, Hernia repair as an . 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 Past Anesthesia/Blood Transfusion Reactions: No Reported Reaction Past Psychological History: Depression Smoking Status: Former smoker Past Alcohol Use History: Abuse, Daily, Heavy recent relapse after being clean and sober for 2-1/2 years. Past Drug Use History: None Reported Mental Status examination: This is a 50-year-old male with past history bipolar affective disorder seen while lying in ICU bed and needs to be aroused constantly answer questions. When asked on today's stay he stated was 03/28/2018. He was able to stay while hospitalized but was unable to tolerate why he was in the hospital. Further questioning revealed that his neighbor called because he thought he was suicidal. In many aspects he maybe is not letting on and no one has gotten a statement from him saying suicidal to spend the ICU. He says with the demise of his dog and having to sleep and having been in the hospital 5 times this past year he feels overwhelmed, depressed given all he denies while sitting in bed and wants all the world to go away. When asked what I could do for him today he said world peace The patient presents partially asleep but easily arousable, pleasant, and cooperative. There calmly sedated and lying in an ICU bed without any agitated behavior. [He] reports that [depressed but denies rating it at all] mood. Affect is congruent and flat. [He has] deny having any suicidal or homicidal ideation intent or plan. [He] denies any auditory or visual hallucinations. There is no evidence of any delusional thought content. [Is] thought process is linear and [id number]. [He has] speech is fluent and nonpressured but is very hesitant because he is partially sedated. [His] memory and concentration is poor for the purposes of this session. Assessment: [This 50-year-old male with history of bipolar cardiovascular disease who is on disability due to bipolar affective disorder. He is acutely withdrawing at the present time from alcohol at the time of admission is 293 blood level and he was given IV Ativan titration drip and is clearly still sedated. At the present time he is not able to make decisions for himself on those does not have capacity to make decisions and should be kept in the case and he wants to leave leave AMA] Diagnosis: [Bipolar affective disorder type I depressed and has history of suicide attempt after his divorce this was precipitated today by the of his dog 2 weeks ago: He also has a history alcohol use disorder became clean and sober 2-1/2 years ago and relapsed within the last 2 weeks.] Plan: [Discontinue the suicide precautions and further evaluate tomorrow for alcohol withdrawal symptoms. If you need any assistance during the nighttime pill free to call me since I'm station captain tonight.] Stop ativan and haldol. Able to come home and encouraged patient to follow up with his psychiatrist as soon as possible in 7 days. Thank you for the consult for this very interesting case and will follow tomorrow. Nicolas Miranda D.O. PhD. Attending psychiatrist) Thomas Boothe 03/31/18 10:27 03/31/18 11:43
[2018-03-31] MEDS ORDERED: clonazePAM 1 MG TAB PO SCH (11:45)
[2018-03-31] MEDS: THIAMINE 100 MG TAB PO SCH (11:55)
[2018-03-31] MEDS: MULTIVITAMINS, THERA 1 EACH TAB PO SCH (11:55)
[2018-03-31 15:10] VITALS: BMI 37.6
--- NOTE | 2018-03-31 15:48 | P.DS ---
Providers Date of admission: 03/26/18 14:17 Attending physician: Yash Huggins MD Consults: 03/26/18 14:17 Consult Physician Urgent Consulting Provider: Jose Cruz Consult Reason/Comments: a fib Do you want consulting provider notified?: Yes 03/26/18 16:46 Consult Physician Urgent Consulting Provider: Nicolas Miranda Consult Reason/Comments: suicidal ideation and alcoholism Do you want consulting provider notified?: Already Contacted 03/27/18 02:47 Consult Physician Stat Consulting Provider: Maikel Walker Consult Reason/Comments: [employer] Do you want consulting provider notified?: Yes 03/30/18 16:28 Consult Physician Routine Consulting Provider: Psychiatry - [facility] Psychiatry Consult Reason/Comments: RE-EVALUATE PER DR ALEXIS IN AM- SEDATED IN ICU Do you want consulting provider notified?: Yes Primary care physician: Rikki [facility] Course: 50-year-old admitted for all call withdrawal all call withdrawal symptoms improved patient has history of congestive heart failure chronic systolic dysfunction coronary artery disease GI bleed. Patient because of recent GI bleed cardiology is not running any anticoagulation. Patient will be discharged today in stable medical condition to home. Patient was evaluated by psychiatric as well the recommending Klonopin twice a day. Patient is also being treated for aspiration pneumonia with Augmentin. -GENERAL: Patient, in bed, he is alert awake oriented exit [address] and person, not in any acute distress. Well developed, well nourished. Obese HEENT: Pupils are round and equally reacting to light. EOMI. No scleral icterus. No conjunctival pallor. Normocephalic, atraumatic. No pharyngeal erythema. No thyromegaly. CARDIOVASCULAR: S1 and S2 present. No murmurs, rubs, or gallops. Artery was controlled PULMONARY: Chest is clear to auscultation, no wheezing or crackles. ABDOMEN: Soft, nontender, nondistended, normoactive bowel sounds. No palpable organomegaly. MUSCULOSKELETAL: No joint swelling or deformity. EXTREMITIES: No cyanosis, clubbing, or pedal edema. NEUROLOGICAL: Gross neurological examination did not reveal any focal deficits. SKIN: No rashes. Assessment and Plan Assessment: Delirium tremens Atrial fibrillation with RVR, presently rate controlled Bilateral pneumonia, on antibiotic for possible aspiration pneumonia -Congestive heart failure chronic systolic dysfunction without any acute exacerbation at this time. Alcohol abuse History of alcohol withdrawal seizure Plan - Discharge Summary New Discharge Prescriptions: New Amoxic-Pot Clav 875-125Mg [Augmentin 875-125] 1 each PO Q12HR #10 tab clonazePAM [KlonoPIN] 1 mg PO BID #20 tab Metoprolol Succinate (ER) [Toprol XL] 150 mg PO DAILY #30 tab.er.24h Omeprazole [PriLOSEC] 40 mg PO AC-BRKFST #14 capsule. Continue lamoTRIgine [LaMICtal] 400 mg PO DAILY Citalopram Hydrobromide [CeleXA] 40 mg PO DAILY Levothyroxine Sodium [Synthroid] 300 mcg PO DAILY Ferrous Sulfate [Iron (65 MG Elemental)] 325 mg PO DAILY Furosemide [Lasix] 20 mg PO DAILY QUEtiapine [SEROquel] 100 mg PO HS Ramipril [Altace] 5 mg PO HS Discontinued Disulfiram [Antabuse] 250 mg PO DAILY Metoprolol Succinate (ER) [Toprol Xl] 50 mg PO DAILY Discharge Medication List Citalopram Hydrobromide [CeleXA] 40 mg PO DAILY 02/25/15 [History] lamoTRIgine [LaMICtal] 400 mg PO DAILY 02/25/15 [History] Levothyroxine Sodium [Synthroid] 300 mcg PO DAILY 02/26/15 [History] Ferrous Sulfate [Iron (65 MG Elemental)] 325 mg PO DAILY 03/26/18 [History] Furosemide [Lasix] 20 mg PO DAILY 03/26/18 [History] QUEtiapine [SEROquel] 100 mg PO HS 03/26/18 [History] Ramipril [Altace] 5 mg PO HS 03/26/18 [History] Amoxic-Pot Clav 875-125Mg [Augmentin 875-125] 1 each PO Q12HR #10 tab 03/31/18 [ Rx] Metoprolol Succinate (ER) [Toprol XL] 150 mg PO DAILY #30 tab.er.24h 03/31/18 [ Rx] Omeprazole [PriLOSEC] 40 mg PO AC-BRKFST #14 capsule. 03/31/18 [Rx] clonazePAM [KlonoPIN] 1 mg PO BID #20 tab 03/31/18 [Rx] Follow up Appointment(s)/Referral(s): Maxim Koch MD [STAFF PHYSICIAN] - 1 Week Rikki Mo MD [Primary Care Provider] - 3 Days Discharge Disposition: HOME SELF-CARE
[2018-03-31 16:58] VITALS: BP 139/51; PULSE 74; TEMP 99.7
== END 2018-03-31 17:12 | disposition home or self-care (01) | DRG 896 ==
LOC: SUPCPDRO 10:12 → EC 10:12 → 6SEL 14:17 → 6ICU 03-27 03:55 → 6SEL 03-29 13:28 → 4MS4W 03-31 00:48
PROVIDERS: ADMIT Internal Medicine; ATTEND Internal Medicine
DX: F10.231 Alcohol dependence with withdrawal delirium (principal); J69.0 Pneumonitis due to inhalation of food and vomit; I48.3 Typical atrial flutter; I50.22 Chronic systolic (congestive) heart failure; J98.11 Atelectasis; R45.851 Suicidal ideations; Y90.8 Blood alcohol level of 240 mg/100 ml or more; D64.9 Anemia, unspecified; E03.9 Hypothyroidism, unspecified; F31.9 Bipolar disorder, unspecified; G40.909 Epilepsy, unspecified, not intractable, without status epilepticus; G47.33 Obstructive sleep apnea (adult) (pediatric); I11.0 Hypertensive heart disease with heart failure; I25.10 Atherosclerotic heart disease of native coronary artery without angina pectoris; I25.2 Old myocardial infarction; I48.2 Chronic atrial fibrillation; K21.9 Gastro-esophageal reflux disease without esophagitis; Z91.5 Personal history of self-harm; Z79.899 Other long term (current) drug therapy; Z80.7 Family history of other malignant neoplasms of lymphoid, hematopoietic and related tissues; Z86.73 Personal history of transient ischemic attack (TIA), and cerebral infarction without residual deficits; Z87.891 Personal history of nicotine dependence; Z91.040 Latex allergy status; Z79.890 Hormone replacement therapy; Z99.89 Dependence on other enabling machines and devices; Z98.84 Bariatric surgery status
CPT/HCPCS: 36415; 71045; 71046; 80053; 80061; 80306; 80320; 81003; 82075; 82550; 82553; 83520; 83605; 83735; 84100; 84132; 84443; 84484; 85025; 87040; 87070; 87086; 87205; 93005; 93306; 96361; 96365; 96366; 96375; 96376; 99291

== ENCOUNTER 2019-10-06 04:22 | Emergency (ER) | payer MEDICARE ==
[2019-10-06 04:30] VITALS: PULSE 79; TEMP 98.3
--- NOTE | 2019-10-06 05:01 | XR ---
EXAMINATION TYPE: XR foot complete RT DATE OF EXAM: 10/06/2019 COMPARISON: NONE HISTORY: Foot pain TECHNIQUE: 3 views FINDINGS: There is small plantar calcaneal spur. Metatarsals are intact. I see no fractureThere. Ther e is posterior dislocation of the PIP joint of the second toe. There Are no erosions. There is soft t issue swelling of the forefoot. IMPRESSION: There is posterior dislocation of the second toe PIP joint. No fracture seen. Mild soft t issue swelling.
[2019-10-06] MEDS ORDERED: LIDOCAINE 2% INJ 20 MG/ML (20 ML MDV) SQ STA (05:21)
--- NOTE | 2019-10-06 05:45 | ED ---
Lower Extremity Injury HPI - General Chief Complaint: Extremity Injury, Lower Stated Complaint: Rt Foot Injury Time Seen by Provider: 10/06/19 04:40 Source: patient Mode of arrival: ambulatory Limitations: no limitations - History of Present Illness Initial Comments: This patient is a 54-year-old man who presents for evaluation of right foot injury. Patient states she had been walking and struck the right foot furniture. He developed pain and swelling to the second toe. Patient states that he thought that it looked funny and he did fall on the toe believe that it straightened. He was concerned because he continues to have swelling and pain. There is no numbness of the toe. MD Complaint: foot injury Onset/Timin -: days(s) Injury: Toes: Right Type of Injury: blunt Place: home Severity: moderate Improves With: other (Elevation) Worsens With: weight bearing Context: direct blow Associated Symptoms: snap/pop sensation, swelling, able to partially bear weight - Related Data Home Medications Medication Instructions Recorded Confirmed Citalopram Hydrobromide [CeleXA] 40 mg PO DAILY 02/25/15 03/26/18 lamoTRIgine [LaMICtal] 400 mg PO DAILY 02/25/15 03/26/18 Levothyroxine Sodium [Synthroid] 300 mcg PO DAILY 02/26/15 03/26/18 Ferrous Sulfate [Iron (65 MG 325 mg PO DAILY 03/26/18 03/26/18 Elemental)] Furosemide [Lasix] 20 mg PO DAILY 03/26/18 03/26/18 QUEtiapine [SEROquel] 100 mg PO HS 03/26/18 03/26/18 Ramipril [Altace] 5 mg PO HS 03/26/18 03/26/18 Previous Rx's Medication Instructions Recorded Amoxic-Pot Clav 875-125Mg 1 each PO Q12HR #10 tab 03/31/18 [Augmentin 875-125] Metoprolol Succinate (ER) [Toprol 150 mg PO DAILY #30 tab.er.24h 03/31/18 XL] Omeprazole [PriLOSEC] 40 mg PO CHAPISKFSSydni #14 capsule. 03/31/18 clonazePAM [KlonoPIN] 1 mg PO BID #20 tab 03/31/18 Cephalexin [Keflex] 500 mg PO Q6HR #28 cap 10/06/19 Hydrocodone/Acetaminophen [[place] 1 each PO Q6HR PRN #20 tab 10/06/19 5-325] Allergies Allergy/AdvReac Type Severity Reaction Status Date / Time latex Allergy Rash/Hives Verified 10/06/19 04:30 Review of Systems ROS Statement: Those systems with pertinent positive or pertinent negative responses have been documented in the HPI. ROS Other: All systems not noted in ROS Statement are negative. Constitutional: Denies: fever, chills Respiratory: Denies: cough, dyspnea Cardiovascular: Denies: chest pain, palpitations Musculoskeletal: Reports: as per HPI, joint swelling, arthralgia Neurological: Denies: weakness, numbness Past Medical History Past Medical History: Atrial Fibrillation, Coronary Artery Disease (CAD), Chest Pain / Angina, Heart Failure, CVA/TIA, GERD/Reflux, GI Bleed, Hypertension, Myocardial Infarction ([place]), Seizure Disorder, Sleep Apnea/CPAP/BIPAP, Syncope, Thyroid Disorder, Vascular Disorder Additional Past Medical History / Comment(s): Pt. states he had a [place] in 2013 and had a TIA in 1994. Does not currently have seizures. States he has varicose veins and poor venous circulation. Last Myocardial Infarction Date:: 2013 History of Any Multi-Drug Resistant Organisms: None Reported Past Surgical History: Bariatric Surgery, Bowel Resection, Heart Catheterization, Hernia Repair, Joint Replacement, Tonsillectomy Additional Past Surgical History / Comment(s): varicose vein surgery, Hernia repair as an infant. 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 Right total hip Past Anesthesia/Blood Transfusion Reactions: No Reported Reaction Past Psychological History: Depression Smoking Status: Former smoker Past Alcohol Use History: Abuse, Daily, Heavy Past Drug Use History: None Reported - Past Family History Father Family Medical History: Cancer Additional Family Medical History / Comment(s): Lymphoma Sister(s) Family Medical History: Cancer Additional Family Medical History / Comment(s): Breast General Exam Limitations: no limitations General appearance: alert, in no apparent distress Head exam: Present: atraumatic, normocephalic Respiratory exam: Present: normal lung sounds bilaterally. Absent: respiratory distress, wheezes, rales, rhonchi, stridor Cardiovascular Exam: Present: regular rate, normal rhythm, normal heart sounds. Absent: systolic murmur, diastolic murmur, rubs, gallop GI/Abdominal exam: Present: soft. Absent: tenderness Extremities exam: Present: other (Patient has swelling to the forefoot and second toe on the right side. There is ecchymosis to the right second toe. There is tenderness and there is decreased range of motion.) Neurological exam: Present: alert. Absent: motor sensory deficit Skin exam: Present: warm, dry, intact, other (Ecchymosis to the right second toe.). Absent: rash Course Vital Signs 10/06/19 10/06/19 04:28 06:14 Temperature 98.3 F Pulse Rate 79 79 Respiratory 20 18 Rate Blood Pressure 215/111 151/95 O2 Sat by Pulse 97 98 Oximetry Medical Decision Making - Medical Decision Making Patient is a 54-year-old man with dislocation of the interphalangeal joint of the right second toe. I did attempt to apply a digital block of the toe and perform a closed reduction, but was not able to obtain an anatomic position on the repeat x-ray. Patient's informed of this and that next step will be to have him go to the orthopedic clinic later today to have close reduction by the orthopedic surgeon. We discussed appropriate return parameters and the follow- up. Patient will also return if there is any difficulty with the follow-up arjun n. Analgesia also provided. Disposition Clinical Impression: Dislocation of toe of right foot Narrative: This is the initial visit for a dislocation of the PIP joint of the right second toe Disposition: HOME SELF-CARE Condition: Good Instructions (If sedation given, give patient instructions): Swollen Joint (ED), Closed Reduction (ED) Additional Instructions: There is a dislocation of the proximal interphalangeal joint of the second toe. As we discussed, follow with orthopedic doctors to have reduction of the joint. If there is any difficulty with the plan return to the emergency department. Prescriptions: Cephalexin [Keflex] 500 mg PO Q6HR #28 cap Hydrocodone/Acetaminophen [[place] 5-325] 1 each PO Q6HR PRN #20 tab PRN Reason: Pain Is patient prescribed a controlled substance at d/c from ED?: No Referrals: Rikki Mo MD [Primary Care Provider] - 1-2 days Froy Fernandez DO [Medical Doctor] - 1-2 days
[2019-10-06] MEDS ORDERED: ACET/COD 300 MG/30 MG STARTER PACK 6 TAB BTL PO STA (06:09)
[2019-10-06 06:15] VITALS: BP 151/95; RESP 18
--- NOTE | 2019-10-06 06:49 | XR ---
EXAMINATION TYPE: XR foot limited RT DATE OF EXAM: 10/06/2019 COMPARISON: Today HISTORY: Posterior reduction TECHNIQUE: 2 views FINDINGS: There is persistent posterior dislocation of the PIP joint of the second toe best seen on t he lateral view. I see no fracture. Metatarsals are intact. IMPRESSION: Persistent posterior dislocation of the PIP joint of the second toe.
== END 2019-10-06 06:17 | disposition home or self-care (01) ==
LOC: EC 04:22
DX: S93.114A Dislocation of interphalangeal joint of right lesser toe(s), initial encounter (principal); I48.91 Unspecified atrial fibrillation; I25.2 Old myocardial infarction; I25.119 Atherosclerotic heart disease of native coronary artery with unspecified angina pectoris; I11.0 Hypertensive heart disease with heart failure; I50.9 Heart failure, unspecified; G47.30 Sleep apnea, unspecified; G40.909 Epilepsy, unspecified, not intractable, without status epilepticus; F32.9 Major depressive disorder, single episode, unspecified; E07.9 Disorder of thyroid, unspecified; Z79.890 Hormone replacement therapy; Z79.899 Other long term (current) drug therapy; Z91.040 Latex allergy status; Z87.891 Personal history of nicotine dependence; Z86.73 Personal history of transient ischemic attack (TIA), and cerebral infarction without residual deficits; Z98.84 Bariatric surgery status; Z99.89 Dependence on other enabling machines and devices; W22.03XA Walked into furniture, initial encounter; Y93.01 Activity, walking, marching and hiking
CPT/HCPCS: 73620; 73630; 99283; 64450; J2001